=== PATIENT | male | born 2005 | race Caucasian/White ===

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

== ENCOUNTER 2023-08-30 17:33 | Emergency (ER) | payer SELFPAY ==
--- OUTSIDE RECORDS SUMMARY | 2023-08-30 17:36 | XMS REPORT | Continuity of Care Document ---
Author Name Unknown Address [address] [facility] [address] th[address] Address [address] [facility] [address] [place] [address] Care Team Providers Care Robotype Operator Name Role Phone Erich Rockwell Attending Clinician Unavailable Payers Payer Name Policy Type Policy Number Effective Date Expirati on Date Source [facility] P [id number] Encounters Start Date/Time End Date/Time Encounter Type Admission Type Attending Clinicians Care Facility Care Department Encounter ID Source 2021-10-21 16:23:08 Outpatient [facility] [id number] [facility] 2020-12-19 19:19:47 Outpatient [facility] [id number] [facility] 2020-12-19 18:15:06 Outpatient [facility] [id number] [facility] 2020-12-19 17:49:34 Outpatient [facility] [id number] [facility] 2019-11-01 00:00:00 2019-11-01 00:00:00 Office Visit Erich Rockwell [facility] Encounter/ [id number] [facility]
[2023-08-30 18:49] LABS: Specific Gravity > 1.030 (1.005-1.030); Sqamous Epithelial <5 /HPF (None Seen); Urine Bacteria None Seen /HPF (<20); Urine Bilirubin NEGATIVE (Negative); Urine Blood Negative (Negative); Urine Clarity Clear (Clear); Urine Color Yellow (Yellow); Urine Culture Reflex Order NOT NEEDED; Urine Glucose NEGATIVE (Negative); Urine Ketones NEGATIVE (Negative); Urine Micro Reflex YN NO BILL MICROSCOPIC; Urine Mucus 1+ /HPF (None Seen); Urine Nitrite NEGATIVE (Negative); Urine Protein 1+ (Negative); Urine RBC <5 /HPF (None Seen); Urine Urobilinogen Normal (Normal); Urine Yeast (Budding) Trace /HPF (None Seen)
[2023-08-30] MEDS ORDERED: CEFTRIAXONE 250 MG/VIAL ONE (20:00)
[2023-08-30] MEDS ORDERED: LIDOCAINE 1% MPF 5 ML VIAL ONE (20:00)
[2023-08-30] MEDS ORDERED: AZITHROMYCIN 250 MG TAB ONE (20:00)
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
--- NOTE | 2023-08-30 20:38 | ER ---
Nurse's Notes [facility] Name: Dhruv Andino Age: 18 yrs Sex: Male : 2005 Arrival Date: 08/30/2023 Time: 17:33 Bed 20 Private MD: Diagnosis: Encounter for screening for infections with a predominantly sexual mode of transmission Presentation: 08/29 18:20 Chief complaint: Patient states: Burning w/ urination and lower abdominal pain x 1 week ph after having unprotected sex. Coronavirus screen: Vaccine status: Patient reports being unvaccinated. Ebola Screen: No symptoms or risks identified at this time. Initial Sepsis Screen: Does the patient meet any 2 criteria? No. Patient's initial sepsis screen is negative. Does the patient have a suspected source of infection? No. Patient's initial sepsis screen is negative. Risk Assessment: Do you want to hurt yourself or someone else? Patient reports no desire to harm self or others. Onset of symptoms was August 30, 2023. 18:20 Method Of Arrival: Ambulatory ph 18:20 Acuity: TUCKER 4 ph Historical: - Allergies: 18:23 No Known Allergies; ph - Immunization history:: Adult Immunizations unknown. - Infectious Disease History:: Denies. - Social history:: Smoking status: unknown. Screenin:12 [facility] ED Fall Risk Assessment (Adult) History of falling in the last 3 months, me1 including since admission No falls in past 3 months (0 pts) Confusion or Disorientation No (0 pts) Intoxicated or Sedated No (0 pts) Impaired Gait No (0 pts) Mobility Assist Device Used No (0 pt) Altered Elimination No (0 pt) Score/Fall Risk Level 0 - 2 = Low Risk. Abuse screen: Denies threats or abuse. Nutritional screening: No deficits noted. Tuberculosis screening: No symptoms or risk factors identified. Assessment: 20:12 General: Appears comfortable, well groomed, well developed, well nourished, Behavior is me1 calm, cooperative, appropriate for age, Reports Burning w/ urination and lower abdominal pain x 1 week after having unprotected sex. Pain: Complains of pain in suprapubic area Pain does not radiate. Pain currently is 3 out of 10 on a pain scale. Quality of pain is described as tender, Pain began gradually, 1 day ago. Is continuous. Neuro: Level of Consciousness is awake, alert, obeys commands, Oriented to person, place, time, situation, Appropriate for age. Cardiovascular: Capillary refill < 3 seconds Patient's skin is warm and dry. Respiratory: Airway is patent Trachea midline Respiratory effort is even, unlabored, Respiratory pattern is regular, symmetrical. GI: No signs and/or symptoms were reported involving the gastrointestinal system. : Reports burning with urination, since yesterday. EENT: No signs and/or symptoms were reported regarding the EENT system. Derm: Skin is intact, is healthy with good turgor, Skin is pink, warm \T\ dry. Musculoskeletal: No signs and/or symptoms reported regarding the musculoskeletal system. Vital Signs: 18:20 BP 140 / 63; Pulse 75; Resp 18; Temp 98; Pulse Ox 99% on R/A; ph 20:35 BP 136 / 57; Pulse 72; Resp 17; Pulse Ox 99% on R/A; me1 ED Course: 17:35 Patient arrived in ED. mr 17:40 Jonas Urbina PA is PHCP. cp 17:40 Sebastian Jovel MD is Attending Physician. cp 18:23 Triage completed. ph 18:23 Arm band placed on Patient placed in waiting room, Patient notified of wait time. ph 19:57 Ibis Do, THUY is Primary Nurse. me1 20:12 Patient has correct armband on for positive identification. Bed in low position. Call me1 light in reach. Provided Education on: POC. Verbalized understanding. . Client placed on continuous cardiac and pulse oximetry monitoring. NIBP monitoring applied. Pulse ox on. NIBP on. 20:12 No provider procedures requiring assistance completed. Patient did not have IV access me1 during this emergency room visit. Administered Medications: 20:11 Drug: AZITHromycin PO 1 grams PO once Route: PO; me1 20:29 Follow up: Response: No adverse reaction me1 20:12 Drug: Rocephin (cefTRIAXone) IM 250 mg IM once Route: IM; Site: left gluteus; me1 20:29 Follow up: Response: No adverse reaction me1 Medication: 20:12 VIS not applicable for this client. me1 Outcome: 20:38 Discharge ordered by . cp 20:49 Discharged to home ambulatory, me1 20:49 Condition: stable 20:49 Discharge instructions given to patient, Instructed on discharge instructions, follow up and referral plans. Demonstrated understanding of instructions, follow-up care, 20:49 Patient left the ED. me1 Signatures: Eloina Juarez Reg Reg mr Vernell Dodson RN RN ph Jonas Urbina PA PA Ibis Sanchez, RN RN me1 Corrections: (The following items were deleted from the chart) 18:23 18:23 Allergies: Aspirin; ph ph 20:12 18:20 Chief complaint: Patient states: Burning w/ urination and lower abdominal pain x me1 1 week after having unprotected sex ph
[2023-08-31 03:19] VITALS: BP 136/57; TEMP 98; O2SAT 99
== END 2023-08-30 20:49 | disposition home or self-care (01) ==
LOC: ER 17:33
DX: Z11.3 Encounter for screening for infections with a predominantly sexual mode of transmission (principal)
CPT/HCPCS: 81001; 87490; 87590; 96372; 99284; J0696; J2001

== ENCOUNTER 2024-05-30 04:13 | Emergency (ER) | payer SELFPAY ==
--- OUTSIDE RECORDS SUMMARY | 2024-05-30 04:16 | XMS REPORT | Continuity of Care Document ---
Author Name Unknown Address [address] [place] [address] [facility] [address] [place] [address] Care Team Providers Care Private Client Advisor Name Role Phone Erich Rockwell Attending Clinician Unavailable Payers Payer Name Policy Type Policy Number Effective Date Expirati on Date Source [facility] P [id number] Encounters Start Date/Time End Date/Time Encounter Type Admission Type Attending Clinicians [facility] Care Department Encounter ID Source 2021-10-21 16:23:08 Outpatient [facility] [id number] [facility] 2020-12-19 19:19:47 Outpatient [facility] [id number] [facility] 2020-12-19 18:15:06 Outpatient [facility] [id number] [facility]who [facility] 2020-12-19 17:49:34 Outpatient [facility] [id number] [facility] 2019-11-01 00:00:00 2019-11-01 00:00:00 Office Visit Erich Rockwell [facility] Encounter/ [id number] [facility]
--- NOTE | 2024-05-30 05:52 | EDPHYS ---
Physician Documentation [facility] Name: Dhruv Andino Age: 19 yrs Sex: Male : 2005 Arrival Date: 05/30/2024 Time: 04:13 Bed 3 Private MD: ED Physician Matt Calix HPI: 05/30 04:33 This 19 yrs old Male presents to ER via Unassigned with complaints of sp4 Anxiety, Depression, confusion,. 05:54 19-year-old male presents to the emergency room for evaluation.. Patient reports he sp4 needs help with medications. Additionally patient reported some problem with sleep. Patient has refused to answer any other questions. Appears intoxicated on presentation. History of cannabis use based on prior record.. 10/06/2023 patient tested positive for cannabis. Today patient appears moderately intoxicated and is refusing to answer questions. . Historical: - Allergies: 04:37 No Known Allergies; br2 - PMHx: 04:37 Bipolar disorder; Major Depressive Disorder; br2 - Immunization history:: Adult Immunizations unknown. - Infectious Disease History:: Denies. - Social history:: Smoking status: Reported history of juuling and/or vaping. Patient uses alcohol, occasionally. street drugs, marijuana. - Family history:: not pertinent. ROS: 05:54 Constitutional: Negative for fever, chills, and weight loss, positive for complaint sp4 of anxiety and insomnia 05:54 All other systems are negative, Exam: 05:54 Constitutional: This is a well developed, well nourished patient who is awake, alert, sp4 and in no acute distress. Noticed to be ambulatory without problem, appears intoxicated on arrival and is refusing to answer questions Head/Face: Normocephalic, atraumatic. Eyes: Pupils equal round and reactive to light, extra-ocular motions intact. Lids and lashes normal. Conjunctiva and sclera are not injected. Cornea within normal limits. Periorbital areas with no swelling, redness, or edema. ENT: Nares patent. No nasal discharge, no septal abnormalities noted. Tympanic membranes are normal and external auditory canals are clear. Oropharynx with no redness, swelling, or masses, exudates, or evidence of obstruction, uvula midline. Mucous membranes moist. Neck: Trachea midline, no thyromegaly or masses palpated, and no cervical lymphadenopathy. Supple, full range of motion without nuchal rigidity, or vertebral point tenderness. Chest/axilla: Normal chest wall appearance and motion. Nontender with no deformity. No lesions are appreciated. Cardiovascular: Regular rate and rhythm with a normal S1 and S2. No gallops, murmurs, or rubs. Normal PMI, no JVD. No pulse deficits. Respiratory: Lungs have equal breath sounds bilaterally, clear to auscultation and percussion. No rales, rhonchi or wheezes noted. No increased work of breathing, no retractions or nasal flaring. Abdomen/GI: Soft, with normal bowel sounds. No distension or tympany. No guarding or rebound. No evidence of tenderness throughout. Back: No spinal tenderness. No costovertebral tenderness. Skin: Warm, dry with normal turgor. Normal color with no rashes, no lesions, and no evidence of cellulitis. MS/ Extremity: Pulses equal, no cyanosis. Neurovascular intact. Full, normal range of motion. Neuro: Awake and alert, grossly no lateralizing deficits, patient is not cooperative with exam. Noted to ambulate without a problem Psych: Awake, alert, exam is limited secondary to intoxication . Patient is refusing to answer questions. Appears to be oriented to self and others. Ambulates to the bathroom without difficulty. Playing music on the [employer] device without difficulty. Vital Signs: 04:33 BP 143 / 91; Pulse 87; Resp 18; Temp 97.1; Pulse Ox 99% ; Weight 86.18 kg; Height 5 ft. br2 11 in. ; Pain 0/10; 05:27 BP 154 / 86; Pulse 87; Resp 16; Pulse Ox 99% on R/A; dd2 04:33 Body Mass Index 26.50 (86.18 kg, 180.34 cm) br2 04:33 Pain Scale: Adult br2 Sathish Coma Score: 05:54 Eye Response: spontaneous(4). Motor Response: obeys commands(6). Verbal Response: sp4 oriented(5). Total: 15. MDM: 04:46 Medical Screening Exam initiated sp4 05:54 Differential diagnosis: drug withdrawal. acute psychotic break, depression, psychosis sp4 secondary to non-compliance. Data reviewed: vital signs, nurses notes, old medical records. ED course: On initial evaluation patient refused to answer most of the questions. Reported some problem with sleep. On second assessment patient refused to speak at all. Patient played music on his cellular phone without answering any questions. Patient was informed that we do not see signs of acute medical emergency. Patient at this time deemed stable for discharge from the emergency department. Patient is ambulatory without difficulty.. 06:01 ED course: We suspect cannabis intoxication. . sp4 Administered Medications: No medications were administered Disposition Summary: 05/30/24 05:51 Discharge Ordered Notes: Location: Home sp4 Problem: new sp4 Symptoms: have improved sp4 Condition: Stable sp4 Diagnosis - Insomnia not otherwise specified , initial encounter sp4 Followup: sp4 - With: Private Physician - When: As needed - Reason: Recheck today's complaints Discharge Instructions: - Discharge Summary Sheet sp4 - Medical Screening Exam sp4 Forms: - Patient Portal Instructions sp4 Signatures: Matt Calix MD MD sp4 Kristina Joseph RN RN br2
--- NOTE | 2024-05-30 05:52 | ER ---
Nurse's Notes [facility] Name: Dhruv Andino Age: 19 yrs Sex: Male : 2005 Arrival Date: 05/30/2024 Time: 04:13 Bed 3 Private MD: Diagnosis: Insomnia not otherwise specified , initial encounter Presentation: 05/30 04:33 Chief complaint: Patient states: PT CHECKED IN FOR ANXIETY/DEPRESSION BUT WILL NOT TELL br2 US WHY HE IS HERE. PT HAS A CAP AND MASK ON AND JUST LOOKS DOWN. PT REMOVED MASK FOR A MOMENT AND JUST SMILES WITH MINIMAL SPEAKING. Coronavirus screen: Client denies travel out of the [place] in the last 14 days. Ebola Screen: Patient denies exposure to infectious person. Initial Sepsis Screen: Does the patient meet any 2 criteria? No. Patient's initial sepsis screen is negative. Does the patient have a suspected source of infection? No. Patient's initial sepsis screen is negative. Risk Assessment: Do you want to hurt yourself or someone else? Patient reports no desire to harm self or others. Onset of symptoms is unknown. 04:33 Method Of Arrival: Ambulatory br2 04:33 Acuity: TUCKER 3 br2 Triage Assessment: 04:37 General: Appears in no apparent distress. Behavior is flat, uncooperative. Pain: Denies br2 pain. EENT: No signs and/or symptoms were reported regarding the EENT system. Neuro: Level of Consciousness is awake, alert, obeys commands, Oriented to person, place, time. Historical: - Allergies: 04:37 No Known Allergies; br2 - PMHx: 04:37 Bipolar disorder; Major Depressive Disorder; br2 - Immunization history:: Adult Immunizations unknown. - Infectious Disease History:: Denies. - Social history:: Smoking status: Reported history of juuling and/or vaping. Patient uses alcohol, occasionally. street drugs, marijuana. - Family history:: not pertinent. Screenin:45 Abuse screen: PT REFUSING TO ANSWER ASSESSMENT AND HX QUESTIONS. CONTINUES TO SIT AND dd2 SMILE BUT NOT COOPERATING. Nutritional screening: No deficits noted. Tuberculosis screening: No symptoms or risk factors identified. 06:05 [facility] ED Fall Risk Assessment (Adult). dd2 Assessment: 04:45 Reassessment: PT SITTING IN BED, SMILING, REFUSING TO ANSWER QUESTIONS OR ALLOW dd2 ASSESSMENT. RESPIRATIONS EVEN AND UNLABORED, MOVES ALL EXTREMITIES. VSS. General: Appears in no apparent distress. Behavior is flat, uncooperative. Neuro: No deficits noted. Cardiovascular: No deficits noted. Respiratory: No deficits noted. GI: No deficits noted. PT REFUSES TO ANSWER QUESTIONS. : No deficits noted. EENT: No deficits noted. Derm: No deficits noted. Musculoskeletal: No deficits noted. Circulation, motion, and sensation intact. Range of motion: intact in all extremities, PT AMBULATED WITH A STEADY GAIT. Psych: 06:02 [place] Suicide Severity Screening: In the past month, have you wished you were dd2 or wished you could go to sleep and not wake up? pt refuses to answer assessment and Hx questions. "In the past month, have you actually had any thoughts of killing yourself?" refusing to answer questions "In your lifetime, have you ever done anything, started to do anything, or prepared to do anything to end your life?" refusing to answer questions. Subjective: Patient's mood is flat. Objective: Patient is uncooperative. Interventions: Pt not presenting with HI/SI. Safety Checks: Door is open. Patient uses marijuana. Vital Signs: 04:33 BP 143 / 91; Pulse 87; Resp 18; Temp 97.1; Pulse Ox 99% ; Weight 86.18 kg; Height 5 ft. br2 11 in. ; Pain 0/10; 05:27 BP 154 / 86; Pulse 87; Resp 16; Pulse Ox 99% on R/A; dd2 04:33 Body Mass Index 26.50 (86.18 kg, 180.34 cm) br2 04:33 Pain Scale: Adult br2 Sathish Coma Score: 05:54 Eye Response: spontaneous(4). Motor Response: obeys commands(6). Verbal Response: sp4 oriented(5). Total: 15. ED Course: 04:17 Patient arrived in ED. gm2 04:33 Matt Calix MD is Attending Physician. sp4 04:37 Triage completed. br2 04:37 Arm band placed on right wrist. br2 04:45 Bed in low position. Call light in reach. Side rails up X2. Client placed on continuous dd2 cardiac and pulse oximetry monitoring. NIBP monitoring applied. Door closed. Noise minimized. Pillow given. Verbal reassurance given. 04:45 No provider procedures requiring assistance completed. Patient did not have IV access dd2 during this emergency room visit. Patient maintains SpO2 saturation greater than 95% on room air. 06:00 HELEN GONZALES, RN is Primary Nurse. dd2 06:01 Provided Education on: d/c education. dd2 Administered Medications: No medications were administered Medication: 04:45 VIS not applicable for this client. dd2 Outcome: 05:51 Discharge ordered by . merlyn 06:01 Discharged to home ambulatory, dd2 06:01 Condition: stable 06:01 Discharge instructions given to patient, Instructed on discharge instructions, follow up and referral plans. Demonstrated understanding of instructions, follow-up care, 06:05 Patient left the ED. dd2 Signatures: Matt Calix MD MD sp4 Alee Espinoza gm2 Kristina Joseph RN RN br2 HELEN GONZALES, RN RN dd2
[2024-05-30 06:22] VITALS: TEMP 97.1; O2SAT 99
[2024-05-30 06:23] VITALS: BP 154/86
== END 2024-05-30 06:05 | disposition home or self-care (01) ==
LOC: ER 04:13
DX: G47.00 Insomnia, unspecified (principal)
CPT/HCPCS: 99283

== ENCOUNTER 2024-05-30 20:43 | Emergency (ER) | payer SELFPAY ==
--- OUTSIDE RECORDS SUMMARY | 2024-05-30 20:45 | XMS REPORT | Continuity of Care Document ---
Author Name Unknown Address [address] [place] [address] [facility] Address [address] [place] [address] Care Team Providers Care Sign Maintenance Name Role Phone Erich Rockwell Attending Clinician Unavailable Payers Payer Name Policy Type Policy Number Effective Date Expirati on Date Source [facility] P [id number] Encounters Start Date/Time End Date/Time Encounter Type Admission Type Attending Clinicians [facility] Facility Care Department Encounter ID Source 2021-10-21 16:23:08 Outpatient [facility] [id number] [facility] 2020-12-19 19:19:47 Outpatient [facility] [id number] [facility] 2020-12-19 18:15:06 Outpatient [facility] [id number] [facility] 2020-12-19 17:49:34 Outpatient [facility] [id number] [facility] 2019-11-01 00:00:00 2019-11-01 00:00:00 Office Visit Erich Rockwell [facility] Encounter/ [id number] [facility]
[2024-05-30] MEDS ORDERED: LORAZEPAM 1 MG TABLET ONE (22:59)
[2024-05-30] MEDS ORDERED: DIPHENHYDRAMINE 25 MG TAB/CAP ONE (22:59)
[2024-05-30 23:47] LABS: Specific Gravity 1.011 (1.005-1.030); Urine Bilirubin NEGATIVE (Negative); Urine Blood Negative (Negative); Urine Clarity Clear (Clear); Urine Color Light-Yellow (Yellow); Urine Glucose NEGATIVE (Negative); Urine Ketones 2+ (Negative); Urine Microscopic Reflex YN NO UMIC; Urine Nitrite NEGATIVE (Negative); Urine Protein NEGATIVE (Negative); Urine Urobilinogen Normal (Normal)
[2024-05-30 23:50] LABS: Absolute Basophils 0.1 K/uL (0-0.5); Absolute Monocytes 1.4 K/uL (0.1-1.3); Absolute Neutrophil 8.7 K/uL (1.8-8.0); Basophils % 0.7 % (0-1.3); Eosinophils % 0.3 % (0-4.4); Hematocrit 48.7 % (39.6-49.0); Hemoglobin 16.7 g/dL (13.6-17.9); MCH 28.6 pg (27.0-35.0); MCHC 34.2 g/dL (32.0-36.0); MCV 83.6 fL (80-100); Monocytes % 10.4 % (3.3-12.3); Neutrophils % 65.6 % (41.7-73.7); Nucleated Red Blood Cells % 0.1 % (0-0); Platelets 280 thou/uL (152-406); RBC Red Blood Cell Count 5.83 M/uL (4.33-5.43); Red Cell Distribution Width 14.7 % (12.1-15.2)
[2024-05-30 23:58] LABS: PT Prothrombin Time 14.5 SECONDS (10-13.0); PTT, Activated Partial Thromb 27.4 SECONDS (27.2-37.4); Protime INR 1.29
[2024-05-31 00:05] LABS: Barbiturates NEGATIVE (NEGATIVE); Benzodiazepines NEGATIVE (NEGATIVE); Cocaine NEGATIVE (NEGATIVE); METHAMPHETAM NEGATIVE (NEGATIVE); Methadone NEGATIVE (NEGATIVE); Opiates NEGATIVE (NEGATIVE); Phencyclidine NEGATIVE (NEGATIVE); THC Cannibis POSITIVE (NEGATIVE)
[2024-05-31 00:17] LABS: ALT/SGPT 27 U/L (16-61); AST/SGOT 38 U/L (15-37); Albumin 4.4 g/dL (3.4-5.0); Alkaline Phosphatase 82 U/L (45-117); Anion Gap 11.1 mEq/L (5.0-15.0); BUN Blood Urea Nitrogen 10 mg/dL (7-18); Bicarbonate 29 mEq/L (21-32); Bilirubin Direct 0.4 mg/dL (0-0.2); Bilirubin Indirect, Calculated 0.7 mg/dL (0.2-0.8); Bilirubin Total 1.1 mg/dL (0.2-1.0); Globulin 4.2 g/dL (2.3-3.5); Glomerular Filtration Rate 86 ml/min (=/>90); Glucose Level 106 mg/dL (74-106); Potassium 3.1 mEq/L (3.5-5.1); Protein, Total 8.6 g/dL (6.4-8.2); Sodium Level 135 mEq/L (136-145)
--- NOTE | 2024-05-31 11:46 | ER ---
Nurse's Notes [facility] Name: Dhruv Andino Age: 19 yrs Sex: Male : 2005 Arrival Date: 05/30/2024 Time: 20:43 Bed 18 Private MD: Diagnosis: Bipolar disorder, current episode depressed, moderate;Suicidal ideations-RESOLVED Presentation: 05/30 21:43 Chief complaint: Patient states: "i was here this morning and they told me that I was cm10 okay, but i told them that i was going to crash the fuck out." Pt states that he hasn't slept in days and is having thoughts of wanting to hurt others. No SI. Coronavirus screen: Client denies travel out of the [place] in the last 14 days. Ebola Screen: Patient denies travel to an Ebola-affected area in the 21 days before illness onset. Initial Sepsis Screen: Does the patient meet any 2 criteria? No. Patient's initial sepsis screen is negative. Does the patient have a suspected source of infection? No. Patient's initial sepsis screen is negative. Risk Assessment: Do you want to hurt yourself or someone else? Patient reports desire/thoughts of hurting themselves or someone else. Provider notified. Onset of symptoms was May 30, 2024. 21:43 Method Of Arrival: Ambulatory cm10 21:43 Acuity: TUCKER 2 cm10 Triage Assessment: 21:46 General: Appears comfortable, Behavior is cooperative, flat. Neuro: No deficits noted. cm10 Level of Consciousness is awake, alert, obeys commands, Oriented to person, place, time, situation, Appropriate for age. Respiratory: Airway is patent Respiratory effort is even, unlabored, Respiratory pattern is regular, symmetrical. Historical: - Allergies: 21:45 No Known Allergies; cm10 - PMHx: 21:45 Bipolar disorder; Major Depressive Disorder; cm10 - Immunization history:: Adult Immunizations up to date. - Infectious Disease History:: Denies. - Social history:: Smoking status: unknown Patient uses street drugs, marijuana. - Family history:: not pertinent. Screenin/26 02:25 [facility] ED Fall Risk Assessment (Adult) History of falling in the last 3 months, aa10 including since admission No falls in past 3 months (0 pts) Confusion or Disorientation No (0 pts) Intoxicated or Sedated No (0 pts) Impaired Gait No (0 pts) Mobility Assist Device Used No (0 pt) Altered Elimination No (0 pt) Score/Fall Risk Level 0 - 2 = Low Risk Oriented to surroundings, Maintained a safe environment, Educated pt \\T\\ family on fall prevention, incl call for assistance when getting out of bed, Assessed \\T\\ reinforced patient's understanding of fall precautions, Provided non-skid footwear. Abuse screen: Denies threats or abuse. Denies injuries from another. Nutritional screening: No deficits noted. Tuberculosis screening: No symptoms or risk factors identified. Assessment: 02:24 General: Appears in no apparent distress. comfortable, well groomed, well developed, aa10 Behavior is. Pain: Denies pain. Neuro: No deficits noted. Level of Consciousness is awake, alert, obeys commands, Oriented to person, place, time, situation, Appropriate for age Surface Grinder Tender are equal bilaterally Moves all extremities. Gait is steady, Speech is normal, Facial symmetry appears normal, Pupils are PERRLA, Intact. Cardiovascular: No deficits noted. Capillary refill < 3 seconds. Respiratory: No deficits noted. Airway is patent. GI: No deficits noted. Abdomen is non-distended. : No deficits noted. 02:27 Reassessment: Patient appears in no apparent distress at this time. No changes from aa10 previously documented assessment. Patient and/or family updated on plan of care and expected duration. Pain level reassessed. Patient is alert, oriented x 3, equal unlabored respirations, skin warm/dry/pink. Patient denies pain at this time. Patient states feeling better. Patient states symptoms have improved. 06:58 Reassessment: MD AT bedside to reassess patient, patient verbalis SI without a plan, aa10 suicidal precaution commenced at this time, sitter at bedside for continuous one on one continuous observation. 07:00 Reassessment: Received patient from THUY Chapin. Pt room safe with belongings with 1 security. Pt sleeping on mattress placed on ground for safety. Sitter at bedside. Q shift paperwork completed. Cell phone from room sent to security at this time. 07:31 Reassessment: [facility] at bedside - denies acceptance at this time. ld1 Vital Signs: 05/30 21:43 BP 127 / 85; Pulse 59; Resp 15; Temp 98.3; Pulse Ox 100% on R/A; cm10 Justice Coma Score: 05/31 05:38 Eye Response: spontaneous(4). Motor Response: obeys commands(6). Verbal Response: sp4 oriented(5). Total: 15. ED Course: 05/30 20:44 Patient arrived in ED. im 20:53 Matt Calix MD is Attending Physician. sp4 21:45 Triage completed. cm10 21:45 Arm band placed on left wrist. Patient placed in an exam room, on a stretcher. cm10 23:15 Inserted saline lock: 20 gauge in left antecubital area, using aseptic technique. Blood rg5 collected. Flushed with 10 mL NS. 23:34 Acetaminophen Sent. aa10 23:34 Basic Metabolic Panel Sent. aa10 23:34 CBC with Diff Sent. aa10 23:34 ETOH Level Sent. aa10 23:34 Hepatic Function Sent. aa10 23:34 PT-INR Sent. aa10 23:34 Ptt, Activated Sent. aa10 23:34 Salicylate Sent. aa10 23:34 Urinalysis w/ reflexes Sent. aa10 23:34 Urine Drug Screen Sent. aa10 05/31 02:26 Patient has correct armband on for positive identification. Allergy band placed. Fall aa10 risk band placed. Placed in gown. Bed in low position. Call light in reach. Side rails up X2. Provided Education on: about plan of care. 02:26 No provider procedures requiring assistance completed. aa10 05:46 contacted [facility] for screening. [facility] 06:13 Rupesh with [facility] eta 45 min to 1 hour eta. kmf 06:48 Safety checks: Items removed: Door open/sign placed on door: Sitter present:. Door rv1 closed. Noise minimized. Visitors limited. Lights dimmed. Sitter at bedside. 07:22 Report received from THUY Chapin. ld1 07:57 Attending Physician role handed off by Matt Calix MD cha 07:57 Jonas Herrera MD is Attending Physician. rose 12:01 [facility] bd 12:49 patient requesting to leave... informed patient of safety decisions, patient pulled IV. bc6 and was given belongings from security . patient not on PENELOPE. 13:14 patient walked out of ED. bc6 13:15 Abhay Mitchell MD is Referral Physician. rose Administered Medications: 05/30 23:14 Drug: LORazepam PO 2 mg PO once Route: PO; rg5 23:14 Drug: diphenhydrAMINE PO 50 mg PO once Route: PO; rg5 Medication: 05/31 02:26 VIS not applicable for this client. aa10 Outcome: 11:46 ER care complete, transfer ordered by . [facility] 13:18 Discharge ordered by . rose 13:22 Patient left the ED. ll1 Addendum: 13:15 Addendum: Other Pt refused VS and refused safety plan at discharge. k b3 Signatures: Mago Renee Corey, MD MD cha Lewis, Lynsay RN RN ll1 Cecelia Saunders RN RN ld1 Mony Grullon, RN RN kb3 Glenys Zepeda rv1 Terrie Spencer 6 Matt Calix MD MD sp4 Emily Lopes Clarissa RN RN cm10 Trixie Farooq [facility] Joel Gregg RN RN rg5 Izzy Escobedo RN RN aa10 Corrections: (The following items were deleted from the chart) 05/30 21:46 21:46 Respiratory: Airway is patent Respiratory effort is even, unlabored, shallow, cm10 Respiratory pattern is regular, symmetrical, cm10
--- NOTE | 2024-05-31 11:47 | EDPHYS ---
Physician Documentation [facility] Name: Dhruv Andino Age: 19 yrs Sex: Male : 2005 Arrival Date: 05/30/2024 Time: 20:43 Bed 18 Private MD: ED Physician Jonas Herrera HPI: 05/30 20:53 This 19 yrs old Male presents to ER via Unassigned with complaints of Mental sp4 health. 05/31 05:38 19-year-old male presents to the emergency room stating he needs help. Patient sp4 initially misbehaved in the waiting room by taken off his T-shirt and throwing a shoe with another patient. Police was called to the waiting area and after evaluating patient police left. Patient checked in in his own words to get help. Patient poorly cooperative with questioning. When pressed for answers patient begins to cuss. Patient appears intoxicated on the drug abuse. . Historical: - Allergies: 05/30 21:45 No Known Allergies; cm10 - PMHx: 21:45 Bipolar disorder; Major Depressive Disorder; cm10 - Immunization history:: Adult Immunizations up to date. - Infectious Disease History:: Denies. - Social history:: Smoking status: unknown Patient uses street drugs, marijuana. - Family history:: not pertinent. ROS: 05/31 05:38 Constitutional: Negative for fever, chills, and weight loss, positive for mental sp4 health issues All other systems are negative, Unable to obtain ROS due to patient being uncooperative, Exam: 05:38 Constitutional: This is a well developed, well nourished patient who is awake, alert, sp4 and in no acute distress. Appears intoxicated on drugs Head/Face: Normocephalic, atraumatic. Eyes: Pupils equal round and reactive to light, extra-ocular motions intact. ENT: Nares patent. No nasal discharge, no septal abnormalities noted. Neck: Trachea midline, no thyromegaly or masses Chest/axilla: Normal chest wall appearance and motion. Nontender with no deformity. No lesions are appreciated. Cardiovascular: Regular rate and rhythm with a normal S1 and S2. No gallops, murmurs, or rubs. Respiratory: Lungs have equal breath sounds bilaterally, clear to auscultation and percussion. No rales, rhonchi or wheezes noted. No increased work of breathing, no retractions or nasal flaring. Abdomen/GI: Soft, with normal bowel sounds. No distension or tympany. No guarding or rebound. No evidence of tenderness throughout. Back: No spinal tenderness. No costovertebral tenderness. Skin: Warm, dry with normal turgor. Normal color with no rashes, no lesions, and no evidence of cellulitis. MS/ Extremity: Pulses equal, no cyanosis. Neurovascular intact. Full, normal range of motion. Neuro: Awake and alert, GCS 15, oriented to person, place, and cooperative with exam but grossly no signs of neurologic deficits Psych: Awake, alert, with orientation to person, place and cooperative patient, becomes angry with questioning Vital Signs: 05/30 21:43 BP 127 / 85; Pulse 59; Resp 15; Temp 98.3; Pulse Ox 100% on R/A; cm10 Sathish Coma Score: 05/31 05:38 Eye Response: spontaneous(4). Motor Response: obeys commands(6). Verbal Response: sp4 oriented(5). Total: 15. MDM: 05/30 22:26 Medical Screening Exam initiated sp4 05/31 05:42 Differential diagnosis: drug withdrawal. acute psychotic break, depression, psychosis sp4 secondary to non-compliance. Data reviewed: vital signs, nurses notes, old medical records, lab test result(s), CBC, drug level(s), electrolytes. Consideration of Admission/Observation Escalation of care including admission/observation considered. ED course: Patient was given Ativan p.o. in an attempt to get him to sleep all of his drugs, on repeat evaluation at 5:40 patient remains uncooperative with questioning. On further questioning patient reported that he is danger to himself and he has plans to harm himself. He also wants help with his medications. Patient reports no homicidal ideation. Based on prior record on 10/07/2023 patient created significant disturbance in the emergency department and had to be taken away in handcuffs. Will proceed with [facility] evaluation for suicidal ideation associated with suicide plan. . 06:57 Transition of care: After a detail discussion of the patient's case, care is sp4 transferred to Jonas Herrera MD. 05/30 22:02 Order name: Acetaminophen; Complete Time: 01:50 sp4 05/30 22:02 Order name: Basic Metabolic Panel; Complete Time: 01:50 sp4 05/30 22:02 Order name: CBC with Diff; Complete Time: :50 sp4 05/30 22:02 Order name: ETOH Level; Complete Time: :50 sp4 05/30 22:02 Order name: Hepatic Function; Complete Time: 01:50 sp4 05/30 22:02 Order name: PT-INR; Complete Time: :50 4 05/30 22:02 Order name: Ptt, Activated; Complete Time: 01:50 sp4 05/30 22:02 Order name: Salicylate; Complete Time: :50 sp4 05/30 22:02 Order name: Urinalysis w/ reflexes; Complete Time: :50 05/30 22:02 Order name: Urine Drug Screen; Complete Time: :50 sp05/30 22:02 Order name: IV Saline Lock; Complete Time: 23:14 sp4 05/30 22:02 Order name: Labs collected and sent; Complete Time: 23:14 [facility] 05/31 05:46 Order name: Suicide Precautions; Complete Time: 05:57 sp4 Administered Medications: 05/30 23:14 Drug: LORazepam PO 2 mg PO once Route: PO; rg5 23:14 Drug: diphenhydrAMINE PO 50 mg PO once Route: PO; rg5 Disposition Summary: 05/31/24 13:18 Discharge Ordered Notes: Location: Home rose Problem: new(05/31/24 13:18) rose Symptoms: have improved(05/31/24 13:18) rose Condition: Stable(05/31/24 13:18) rose Diagnosis - Bipolar disorder, current episode depressed, moderate(05/31/24 13:18) rose - Suicidal ideations - RESOLVED(05/31/24 13:18) rose Followup: rose - With: Private Physician - When: 2 - 3 days - Reason: Recheck today's complaints, Continuance of care, Re-evaluation by your physician Followup: rose - With: Abhay Mitchell MD - When: 2 - 3 days - Reason: Recheck today's complaints, Re-evaluation by your physician Discharge Instructions: - Discharge Summary Sheet rose - Suicidal Feelings: How to Help Yourself rose - Helping Someone Who is Suicidal rose - Stress, Adult rose - Managing Bipolar Disorder rose - Supporting Someone With Bipolar Disorder rose Forms: - Medication Reconciliation Form rose - Antibiotic Education rose - Prescription Opioid Use rose - Patient Portal Instructions rose - Leadership Thank You Letter rose Signatures: Dispatcher [employer] EDJonas Lynn MD MD cha Potepalov, Sergey, MD MD sp4 Yareli De La Torre RN RN cm10 Joel Gregg RN RN rg5 Corrections: (The following items were deleted from the chart) 22:03 22:03 ACETAMINOPHEN+C.LAB.BRZ ordered. EDMS EDMS 22:03 22:03 BASIC METABOLIC PANEL+C.LAB.BRZ ordered. EDMS EDMS 22:03 22:03 CBC+H.LAB.BRZ ordered. EDMS EDMS 22:03 22:03 ETHANOL+C.LAB.BRZ ordered. EDMS EDMS 22:03 22:03 HEPATIC FUNCTION+C.LAB.BRZ ordered. EDMS EDMS 22:03 22:03 PROTIME (+INR)+COAG.LAB.BRZ ordered. EDMS EDMS 22:03 22:03 PTT, ACTIVATED+COAG.LAB.BRZ ordered. EDMS EDMS 22:03 22:03 SALICYLATE+C.LAB.BRZ ordered. EDMS EDMS 22:03 22:03 Urinalysis+U.LAB.BRZ ordered. EDMS EDMS 22:03 22:03 URINE DRUG SCREEN+UC.LAB.BRZ ordered. EDMS EDMS 05/31 13:14 11:46 TO PSYCH rose rose 13:14 11:46 Psych Facility rose rose 13:14 11:46 Higher level of care rose rose 13:14 11:46 Stable rose rose 13:14 11:46 new rose rose 13:14 11:46 have improved rose rose 13:14 11:46 Bipolar disorder, current episode depressed, moderate rose rose 13:14 11:46 Suicidal ideations rose rose
[2024-05-31 13:38] VITALS: BP 127/85; TEMP 98.3; O2SAT 100
== END 2024-05-31 13:22 | disposition home or self-care (01) ==
LOC: ER 20:43
DX: F31.32 Bipolar disorder, current episode depressed, moderate (principal)
CPT/HCPCS: 36415; 80048; 80076; 80143; 80179; 80307; 81003; 82077; 85025; 85610; 85730

== ENCOUNTER 2024-06-13 13:25 | Emergency (ER) | payer SELFPAY ==
--- OUTSIDE RECORDS SUMMARY | 2024-06-13 13:29 | XMS REPORT | Continuity of Care Document ---
Author Name Unknown Address [address] [place] [address] [facility] [address] [place] [address] Care Team Providers Care Due Diligence Coordinator Name Role Phone Erich Rockwell Attending Clinician Unavailable Payers Payer Name Policy Type Policy Number Effective Date Expirati on Date Source [facility] P [id number] Encounters Start Date/Time End Date/Time Encounter Type Admission Type Attending Clinicians [facility] Facility Care Department Encounter ID Source 2021-10-21 16:23:08 Outpatient [facility] [id number] [facility] 2020-12-19 19:19:47 Outpatient [facility] [id number] [facility] 2020-12-19 18:15:06 Outpatient [facility] [id number] [facility] 2020-12-19 17:49:34 Outpatient [facility] [id number] [facility] 2019-11-01 00:00:00 2019-11-01 00:00:00 Office Visit Erich Rockwell [facility] Encounter/ [id number] [facility]
--- NOTE | 2024-06-13 14:28 | RAD REPORT ---
EXAM: CT brain without contrast HISTORY: Blurred vision COMPARISON: 2021 TECHNIQUE: Multiple contiguous axial images were obtained and a CT of the brain without contrast.. Sagittal and coronal reconstruction performed. Automated exposure control, adjustment of the mA and/or kV according to patient size, and/or iterative reconstruction. Unless otherwise specified, incidental f indings do not require dedicated imaging follow-up FINDINGS: An intracranial bleed is not seen Ventricles are normal caliber No extra-axial fluid collection noted No significant hypodensity within the brain No fluid within the visualized sinuses or mastoids noted. IMPRESSION: No acute intracranial abnormality noted. If the patient continues to have symptoms to suggest an acute intracranial abnormality then MRI of th e brain would be recommended.
[2024-06-13 15:06] LABS: Specific Gravity 1.009 (1.005-1.030); Urine Bilirubin NEGATIVE (Negative); Urine Blood Negative (Negative); Urine Clarity Clear (Clear); Urine Color Colorless (Yellow); Urine Glucose NEGATIVE (Negative); Urine Ketones NEGATIVE (Negative); Urine Microscopic Reflex YN NO UMIC; Urine Nitrite NEGATIVE (Negative); Urine Protein NEGATIVE (Negative); Urine Urobilinogen Normal (Normal); Urine pH 7.5 (5.0-7.0)
[2024-06-13 15:12] LABS: Absolute Eosinophils 0.1 K/uL (0-0.5); Absolute Lymphocytes (CBC) 1.9 K/uL (0.7-4.9); Absolute Monocytes 0.4 K/uL (0.1-1.3); Absolute Neutrophil 3.5 K/uL (1.8-8.0); Basophils % 0.5 % (0-1.3); Eosinophils % 1.2 % (0-4.4); Hematocrit 46.6 % (39.6-49.0); Hemoglobin 15.8 g/dL (13.6-17.9); MCH 28.8 pg (27.0-35.0); MCHC 33.8 g/dL (32.0-36.0); MCV 85.3 fL (80-100); MPV 7.9 fL (7.6-11.3); Monocytes % 6.2 % (3.3-12.3); Neutrophils % 60.1 % (41.7-73.7); Nucleated Red Blood Cells % 0.1 % (0-0); Platelets 221 thou/uL (152-406); RBC Red Blood Cell Count 5.46 M/uL (4.33-5.43); Red Cell Distribution Width 15.2 % (12.1-15.2)
[2024-06-13 15:20] LABS: Barbiturates NEGATIVE (NEGATIVE); Benzodiazepines NEGATIVE (NEGATIVE); Cocaine NEGATIVE (NEGATIVE); METHAMPHETAM NEGATIVE (NEGATIVE); Methadone NEGATIVE (NEGATIVE); Opiates NEGATIVE (NEGATIVE); Phencyclidine NEGATIVE (NEGATIVE); THC Cannibis POSITIVE (NEGATIVE)
[2024-06-13 15:29] LABS: Albumin 4.1 g/dL (3.4-5.0); Albumin/Globulin Ratio 1.1 (1.1-1.8); Bilirubin Direct 0.2 mg/dL (0-0.2); Bilirubin Indirect, Calculated 0.4 mg/dL (0.2-0.8); Bilirubin Total 0.6 mg/dL (0.2-1.0); Globulin 3.8 g/dL (2.3-3.5); Protein, Total 7.9 g/dL (6.4-8.2)
[2024-06-13] MEDS ORDERED: NA CHLORIDE 0.9% 1,000 ML ONE (16:17)
[2024-06-13] MEDS ORDERED: DIAZEPAM 5 MG TABLET ONE (16:17)
--- NOTE | 2024-06-13 17:01 | ER ---
Nurse's Notes [facility] Name: Dhruv Andino Age: 19 yrs Sex: Male : 2005 Arrival Date: 06/13/2024 Time: 13:25 Bed 26 Private MD: Diagnosis: Blurred vision;Tremor, unspecified Presentation: 06/13 14:00 Chief complaint: Patient states: he has been feeling shaky and having blurry vision for ap3 2 days. patient denies feeling ill. patient reports that prior to these symptoms he had "smoked a CBD pen". Coronavirus screen: At this time, the client does not indicate any symptoms associated with coronavirus-19. Ebola Screen: No symptoms or risks identified at this time. Initial Sepsis Screen: Does the patient meet any 2 criteria? No. Patient's initial sepsis screen is negative. Does the patient have a suspected source of infection? No. Patient's initial sepsis screen is negative. Risk Assessment: Do you want to hurt yourself or someone else? Patient reports no desire to harm self or others. Onset of symptoms was June 11, 2024. 14:00 Method Of Arrival: Ambulatory ap3 14:00 Acuity: TUCKER 3 ap3 Triage Assessment: 14:02 General: Appears in no apparent distress. Behavior is calm, cooperative, appropriate ap3 for age. Pain: Denies pain. EENT: Reports blurred vision. Neuro: Level of Consciousness is awake, alert, obeys commands, Oriented to person, place, time, situation. Cardiovascular: Patient's skin is warm and dry. Respiratory: Airway is patent Respiratory effort is even, unlabored, Respiratory pattern is regular, symmetrical. Historical: - Allergies: 16:15 No Known Allergies; jb4 - PMHx: 16:15 Bipolar disorder; Major Depressive Disorder; jb4 - Immunization history:: Client reports having NOT received the Covid vaccine. Flu vaccine is not up to date. - Infectious Disease History:: Denies. - Social history:: Smoking status: Reported history of juuling and/or vaping. Patient uses CBD. - Family history:: not pertinent. - Hospitalizations: : No recent hospitalization is reported. Screenin:03 Abuse screen: Denies threats or abuse. Nutritional screening: No deficits noted. ap3 Tuberculosis screening: No symptoms or risk factors identified. 16:21 [facility] ED Fall Risk Assessment (Adult) History of falling in the last 3 months, jb4 including since admission No falls in past 3 months (0 pts) Confusion or Disorientation No (0 pts) Intoxicated or Sedated No (0 pts) Impaired Gait Yes (1 pt) Mobility Assist Device Used No (0 pt) Altered Elimination No (0 pt) Score/Fall Risk Level 0 - 2 = Low Risk Oriented to surroundings, Maintained a safe environment. Assessment: 16:14 General: Appears in no apparent distress. comfortable, Behavior is calm, cooperative. jb4 Pain: Denies pain. Neuro: Level of Consciousness is awake, alert, obeys commands, Oriented to person, place, time, situation, Reports blurred vision since 2 days ago. Cardiovascular: Patient's skin is warm and dry. Rhythm is sinus bradycardia. Respiratory: Airway is patent Respiratory effort is even, unlabored, Respiratory pattern is regular, symmetrical. Derm: Skin is intact, Skin is pink, warm \\T\\ dry. Musculoskeletal: Circulation, motion, and sensation intact. Range of motion: intact in all extremities. 17:29 Reassessment: Patient appears in no apparent distress at this time. Patient and/or jb4 family updated on plan of care and expected duration. Pain level reassessed. Patient is alert, oriented x 3, equal unlabored respirations, skin warm/dry/pink. D/c pending ride home. Vital Signs: 14:00 BP 144 / 84; Pulse 54; Resp 18; Temp 98.2(O); Pulse Ox 100% on R/A; Weight 81.65 kg; ap3 Height 5 ft. 11 in. ; 16:21 BP 137 / 83; Pulse 50; Resp 16; Temp 98.1(O); Pulse Ox 100% on R/A; jb4 14:00 Body Mass Index 25.10 (81.65 kg, 180.34 cm) ap3 ED Course: 13:26 Patient arrived in ED. mr 13:26 Sebastian Jovel MD is Attending Physician. rn 14:02 Triage completed. ap3 14:03 Arm band placed on right wrist. ap3 14:03 Patient has correct armband on for positive identification. ap3 14:11 CT Head Brain wo Cont In Process Unspecified. EDMS 14:52 Initial lab(s) drawn, by me, sent to lab. Urine collected: clean catch specimen, clear. bc6 Inserted saline lock: 20 gauge in left antecubital area, using aseptic technique. Blood collected. Flushed with 10 mL NS. 16:21 Provided Education on: plan of care. jb4 16:21 No provider procedures requiring assistance completed. jb4 17:29 IV discontinued, intact, bleeding controlled, No redness/swelling at site. Pressure jb4 dressing applied. 17:40 Maverick Parson, RN is Primary Nurse. jb4 Administered Medications: 16:22 Drug: NS 0.9% IV 1000 ml IV at 1000 ml once; to be given as a bolus over 60 minutes jb4 Route: IV; Rate: 1000 ml; Site: left antecubital; 17:31 Follow up: Response: No adverse reaction; IV Status: Completed infusion; IV Intake: jb4 1000ml 16:22 Drug: Diazepam PO 5 mg PO once Route: PO; jb4 17:31 Follow up: Response: No adverse reaction; Marked relief of symptoms jb4 Medication: 16:21 VIS not applicable for this client. jb4 Intake: 17:31 IV: 1000ml; Total: 1000ml. jb4 Outcome: 17:01 Discharge ordered by . rn 17:29 Discharged to Pt waiting in room for ride home due to Valium administration. jb4 17:29 Condition: stable 17:29 Discharge instructions given to patient, Instructed on discharge instructions, follow up and referral plans. Demonstrated understanding of instructions, follow-up care, 17:40 Discharged to home ambulatory, with family, sister arrived to parts picker patient. jb4 17:41 Patient left the ED. jb4 Signatures: Dispatcher [employer] EDAR Eloina Juarez, Reg Reg Sebastian Andrade MD MD rn Bryson, James, RN RN jb4 Khushbu Chowdary RN RN ap3 Terrie Spencer bc6
--- NOTE | 2024-06-13 17:02 | EDPHYS ---
Physician Documentation [facility] Name: Dhruv Andino Age: 19 yrs Sex: Male : 2005 Arrival Date: 06/13/2024 Time: 13:25 Bed 26 Private MD: ED Physician Sebastian Jovel HPI: 06/13 14:03 This 19 yrs old Male presents to ER via Ambulatory with complaints of Vision Problem, rn Shaking, Stiffness. 14:03 Patient reports tremor and blurred vision, started 2 days ago. States smoked CBD from a rn store 2 days ago as well as 4 days ago. He is not sure what exactly was in it. Patient takes hydroxyzine, Haldol, Depakote, Seroquel. Denies any changes in dosing or overdose. Denies diplopia. No head injury. Patient can see up close but not far away.. Historical: - Allergies: 16:15 No Known Allergies; jb4 - PMHx: 16:15 Bipolar disorder; Major Depressive Disorder; jb4 - Immunization history:: Client reports having NOT received the Covid vaccine. Flu vaccine is not up to date. - Infectious Disease History:: Denies. - Social history:: Smoking status: Reported history of juuling and/or vaping. Patient uses CBD. - Family history:: not pertinent. - Hospitalizations: : No recent hospitalization is reported. ROS: 14:29 Constitutional: Negative for fever, chills, and weight loss, Eyes: Positive for blurred rn vision Cardiovascular: Negative for chest pain, palpitations, and edema, Respiratory: Negative for shortness of breath, cough, wheezing, and pleuritic chest pain, Abdomen/GI: Negative for abdominal pain, nausea, vomiting, diarrhea, and constipation, MS/Extremity: Negative for injury and deformity, Skin: Negative for injury, rash, and discoloration, Neuro: Positive for generalized weakness and tremor Exam: 14:29 Constitutional: This is a well developed, well nourished patient who is awake, alert, rn and in no acute distress. Head/Face: Normocephalic, atraumatic. Eyes: Pupils equal round and reactive to light, extra-ocular motions intact. No evidence of trauma, no corneal defects ENT: Dry mucous membranes Cardiovascular: Bradycardic, regular Respiratory: No respiratory distress. Speaking full sentences Skin: No cyanosis or rash MS/ Extremity: Pulses equal, no cyanosis. Neurovascular intact. Full, normal range of motion. Equal circumference. Neuro: Awake and alert, GCS 15, oriented to person, place, time, and situation. Cranial nerves II-XII grossly intact. Motor strength 5/5 in all extremities. Sensory grossly intact. Cerebellar exam normal. Intermittent tremor of upper extremities. No clonus 16:21 ECG was reviewed by the Attending Physician. rn Vital Signs: 14:00 BP 144 / 84; Pulse 54; Resp 18; Temp 98.2(O); Pulse Ox 100% on R/A; Weight 81.65 kg; ap3 Height 5 ft. 11 in. ; 16:21 BP 137 / 83; Pulse 50; Resp 16; Temp 98.1(O); Pulse Ox 100% on R/A; jb4 14:00 Body Mass Index 25.10 (81.65 kg, 180.34 cm) ap3 MDM: 13:26 Medical Screening Exam initiated rn 16:59 Differential Diagnosis Anticholinergic syndrome, adverse effect of drugs, dehydration, rn adverse effects of prescription drugs. Data reviewed: vital signs, nurses notes, lab test result(s), EKG, radiologic studies, CT scan, and as a result, I will discharge patient. Counseling: I had a detailed discussion with the patient and/or guardian regarding the historical points, exam findings, and any diagnostic results supporting the discharge/admit diagnosis, lab results, radiology results, the need for outpatient follow up, to return to the emergency department if symptoms worsen or persist or if there are any questions or concerns that arise at home. Special discussion: I discussed with the patient/guardian in detail that at this point there is no indication for admission to the hospital. It is understood, however, that if the symptoms persist or worsen the patient needs to return immediately for re-evaluation. Based on the history and exam findings, there is no indication for further emergent testing or inpatient evaluation. I discussed with the patient/guardian the need to see the primary care provider for further evaluation of the symptoms. I discussed with the patient/guardian the need to see the psychiatrist for further evaluation of the symptoms. ED course: No acute findings and workup. Patient feels better. Patient reports vision has improved somewhat. Normal and nonfocal neurological exam otherwise. CT head negative for acute findings. Blood work unremarkable for acute findings. Advised to stop smoking CBD or other drugs that he does not know his contents and also advised to hold off on hydroxyzine as could worsen his symptoms. Recommend PCP and ophthalmology follow-up if continued blurred vision. I have personally reviewed all of the results, including but not limited to blood tests and imaging deemed necessary to safely discharge this patient at this time. All results given to and printed out for patient. I personally went over all the results with the patient and answered all questions. Patient will follow-up with PCP and or specialist as discussed. Return precautions given and understood.. 06/13 13:50 Order name: CBC with Diff; Complete Time: 16:19 rn 06/13 13:50 Order name: Basic Metabolic Panel; Complete Time: 16:19 rn 06/13 13:50 Order name: Urinalysis w/ reflexes; Complete Time: 16:19 rn 06/13 13:50 Order name: Urine Drug Screen; Complete Time: 16:19 rn 06/13 13:50 Order name: LFT's; Complete Time: 16:19 rn 06/13 13:50 Order name: ETOH Level; Complete Time: 16:19 rn 06/13 13:59 Order name: Depakote; Complete Time: 16:53 rn 06/13 13:50 Order name: CT Head Brain wo Cont; Complete Time: 14:29 rn 06/13 13:50 Order name: IV Start; Complete Time: 16:23 rn 06/13 13:50 Order name: EKG - Nurse/Tech; Complete Time: 16:14 rn EC:21 Rate is 48 beats/min. Rhythm is regular. Right axis deviation noted. QRS is positive in rn lead aVF and negative in lead I. QRS interval is normal. QT interval is normal. T waves are Normal. No ST changes noted. Clinical impression: Sinus bradycardia. Interpreted by me. Reviewed by me. Administered Medications: 16:22 Drug: NS 0.9% IV 1000 ml IV at 1000 ml once; to be given as a bolus over 60 minutes jb4 Route: IV; Rate: 1000 ml; Site: left antecubital; 17:31 Follow up: Response: No adverse reaction; IV Status: Completed infusion; IV Intake: jb4 1000ml 16:22 Drug: Diazepam PO 5 mg PO once Route: PO; jb4 17:31 Follow up: Response: No adverse reaction; Marked relief of symptoms jb4 Disposition Summary: 06/13/24 17:01 Discharge Ordered Notes: Location: Home rn Problem: new rn Symptoms: have improved rn Condition: Stable rn Diagnosis - Blurred vision rn - Tremor, unspecified rn Followup: rn - With: Private Physician - When: As needed - Reason: Recheck today's complaints, Re-evaluation by your physician Discharge Instructions: - Discharge Summary Sheet rn - Blurred Vision, Adult rn - Accidental Drug Poisoning, Adult rn - Therapeutic Drug Monitoring rn Forms: - Medication Reconciliation Form rn - Antibiotic learning and development assistant - Prescription Opioid Use rn - Patient Portal Instructions rn - Leadership Thank You Letter rn Signatures: Dispatcher [employer] EDMS Sebastian Jovel MD MD rn Bryson, James RN RN jb4 Khushbu Chowdary RN RN ap3 Corrections: (The following items were deleted from the chart) 13:50 13:50 Head Brain Wo Cont+CT.RAD.BRZ ordered. EDMS EDMS 13:50 13:50 CBC+H.LAB.BRZ ordered. EDMS EDMS 13:50 13:50 BASIC METABOLIC PANEL+C.LAB.BRZ ordered. EDMS EDMS 13:50 13:50 Urinalysis+U.LAB.BRZ ordered. EDMS EDMS 13:50 13:50 URINE DRUG SCREEN+UC.LAB.BRZ ordered. EDMS EDMS 13:50 13:50 HEPATIC FUNCTION+C.LAB.BRZ ordered. EDMS EDMS 13:50 13:50 ETHANOL+C.LAB.BRZ ordered. EDMS EDMS
[2024-06-13 17:59] VITALS: O2SAT 100
[2024-06-13 18:02] VITALS: BP 137/83; TEMP 98.1
--- NOTE | 2024-06-14 11:59 | EKG ---
Test Date: 2024-06-13 Test Time: 16:10:05 Integrative Medicine Physician: VITALIY MEASUREMENT RESULTS: Intervals: Rate: 48 [place]: 174 QRSD: 102 QT: 444 QTc: 396 [place]: P: 48 [place]: 174 QRS: 91 T: 78 INTERPRETIVE STATEMENTS: Sinus bradycardia with premature supraventricular complexes Rightward axis Early repolarization Borderline ECG Compared to ECG 10/06/2023 05:52:24 Atrial premature complex(es) now present First degree AV block no longer present Electronically Signed On 06-14-24 11:57:13 CDT by Joao Ribeiro
== END 2024-06-13 17:41 | disposition home or self-care (01) ==
LOC: ER 13:25
DX: H53.8 Other visual disturbances (principal); R25.1 Tremor, unspecified
CPT/HCPCS: 36415; 70450; 80048; 80076; 80164; 80307; 81003; 82077; 85025; 93005; 96360; 99284; J7030

== ENCOUNTER 2024-07-13 17:19 | Emergency (ER) | payer SELFPAY ==
--- OUTSIDE RECORDS SUMMARY | 2024-07-13 17:22 | XMS REPORT | Continuity of Care Document ---
Author Name Unknown Address [address] [place] [address] [facility] Address [address] [place] [address] Care Team Providers Care Commiss[employer] Production Supervisor Name Role Phone Erich Rockwell Attending Clinician Unavailable Payers Payer Name Policy Type Policy Number Effective Date Expirati on Date Source [facility] P [id number] Encounters Start Date/Time End Date/Time Encounter Type Admission Type Attending Clinicians [facility] Care Department Encounter ID Source 2021-10-21 16:23:[address] [facility] [id number] [facility] 2020-12-19 19:19:[address] [facility] [id number] [facility] 2020-12-19 18:15:[address] [facility] [id number] [facility] 2020-12-19 17:49:[address] [facility] [id number] [facility] 2019-11-01 00:00:00 2019-11-01 00:00:00 Office Visit Erich Rockwell [facility] Encounter/ [id number] [facility]
[2024-07-13] MEDS ORDERED: NA CHLORIDE 0.9% 1,000 ML ONE (19:12)
[2024-07-13 19:25] LABS: Absolute Eosinophils 0.1 K/uL (0-0.5); Absolute Lymphocytes (CBC) 1.9 K/uL (0.7-4.9); Absolute Monocytes 1.2 K/uL (0.1-1.3); Absolute Neutrophil 8.6 K/uL (1.8-8.0); Basophils % 0.4 % (0-1.3); Eosinophils % 0.7 % (0-4.4); Hematocrit 47.7 % (39.6-49.0); Hemoglobin 16.4 g/dL (13.6-17.9); Lymphocytes % 16.1 % (15.3-44.8); MCHC 34.3 g/dL (32.0-36.0); MCV 84.5 fL (80-100); MPV 8.1 fL (7.6-11.3); Monocytes % 10.3 % (3.3-12.3); Neutrophils % 72.5 % (41.7-73.7); Platelets 205 thou/uL (152-406); RBC Red Blood Cell Count 5.64 M/uL (4.33-5.43); Red Cell Distribution Width 15.2 % (12.1-15.2)
[2024-07-13 19:36] LABS: PT Prothrombin Time 13.5 SECONDS (10-13.0); Protime INR 1.19
[2024-07-13] MEDS ORDERED: LORAZEPAM 1 MG TABLET ONE (19:39)
[2024-07-13 19:40] LABS: ALT/SGPT 25 U/L (16-61); AST/SGOT 14 U/L (15-37); Albumin 4.2 g/dL (3.4-5.0); Albumin/Globulin Ratio 1.1 (1.1-1.8); Alkaline Phosphatase 61 U/L (45-117); Anion Gap 10.9 mEq/L (5.0-15.0); BUN Blood Urea Nitrogen 14 mg/dL (7-18); Barbiturates NEGATIVE (NEGATIVE); Benzodiazepines NEGATIVE (NEGATIVE); Bicarbonate 26 mEq/L (21-32); Bilirubin Direct 0.2 mg/dL (0-0.2); Bilirubin Indirect, Calculated 0.2 mg/dL (0.2-0.8); Bilirubin Total 0.4 mg/dL (0.2-1.0); Cocaine NEGATIVE (NEGATIVE); Globulin 3.8 g/dL (2.3-3.5); Glomerular Filtration Rate 109 ml/min (=/>90); Glucose Level 110 mg/dL (74-106); METHAMPHETAM NEGATIVE (NEGATIVE); Methadone NEGATIVE (NEGATIVE); Opiates NEGATIVE (NEGATIVE); Phencyclidine NEGATIVE (NEGATIVE); Potassium 3.9 mEq/L (3.5-5.1); Sodium Level 137 mEq/L (136-145); THC Cannibis POSITIVE (NEGATIVE)
[2024-07-13] MEDS ORDERED: droPERidol 5 MG/2 ML VIAL ONE (20:24)
[2024-07-13] MEDS ORDERED: DIPHENHYDRAMINE 50 MG/ML VIAL ONE (20:24)
--- NOTE | 2024-07-13 20:54 | ER ---
Nurse's Notes [facility] Name: Dhruv Andino Age: 19 yrs Sex: Male : 2005 Arrival Date: 07/13/2024 Time: 17:19 Bed 5 Private MD: Diagnosis: Anxiety disorder, unspecified Presentation: 07/13 17:46 Chief complaint: Patient states: [facility] [employer] [facility] [employer] [facility] , he iw got drunk that night and he has had the shakes since then, they put him on several different medications. Coronavirus screen: At this time, the client does not indicate any symptoms associated with coronavirus-19. Ebola Screen: No symptoms or risks identified at this time. Initial Sepsis Screen: Does the patient meet any 2 criteria? No. Patient's initial sepsis screen is negative. Does the patient have a suspected source of infection? No. Patient's initial sepsis screen is negative. Risk Assessment: Do you want to hurt yourself or someone else? Patient reports no desire to harm self or others. Onset of symptoms was July 11, 2024. 17:46 Method Of Arrival: Ambulatory iw 17:46 Acuity: TUCKER 3 iw Triage Assessment: 18:00 General: Appears in no apparent distress. Behavior is agitated, anxious. Pain: Denies bp pain. EENT: No deficits noted. Neuro: Reports TREMORS. Cardiovascular: No deficits noted. Respiratory: No deficits noted. GI: No signs and/or symptoms were reported involving the gastrointestinal system. : No signs and/or symptoms were reported regarding the genitourinary system. Derm: No deficits noted. Musculoskeletal: No deficits noted. Historical: - Allergies: 17:47 No Known Allergies; iw - Home Meds: 17:47 Haldol Oral 10 mg three times a day [Active]; divalproex 500 mg oral tablet, delayed iw release (enteric coated) 2 times per day [Active]; Seroquel 500 mg Oral every evening [Active]; hydroxyzine HCl 25 mg Oral tablet as needed [Active]; - PMHx: 17:47 Bipolar disorder; Major Depressive Disorder; iw - PSHx: 17:47 None; iw - Immunization history:: Adult Immunizations not up to date. - Infectious Disease History:: Denies. - Social history:: Smoking status: Patient denies any tobacco usage or history of. Patient uses alcohol, occasionally. Patient/guardian denies using street drugs. Screenin:43 [facility] ED Fall Risk Assessment (Adult) History of falling in the last 3 months, bm8 including since admission No falls in past 3 months (0 pts) Confusion or Disorientation No (0 pts) Intoxicated or Sedated No (0 pts) Impaired Gait No (0 pts) Mobility Assist Device Used No (0 pt) Altered Elimination No (0 pt) Score/Fall Risk Level 0 - 2 = Low Risk Oriented to surroundings, Maintained a safe environment, Educated pt \T\ family on fall prevention, incl call for assistance when getting out of bed, Assessed \T\ reinforced patient's understanding of fall precautions, Hourly rounding (assess needs \T\ fall precautionary measures) done, Used ambulatory aids as needed (educated on \T\ assisted with), Used gait belt as appropriate. Abuse screen: Denies threats or abuse. Nutritional screening: No deficits noted. Tuberculosis screening: No symptoms or risk factors identified. Assessment: 18:46 Reassessment: Patient and/or family updated on plan of care and expected duration. Pain ll1 level reassessed. 19:43 Reassessment: Patient appears in no apparent distress at this time. Patient and/or bm8 family updated on plan of care and expected duration. Pain level reassessed. Patient is alert, oriented x 3, equal unlabored respirations, skin warm/dry/pink. Patient denies pain at this time. Neuro: Reports tremors for about 2 days. 20:28 Reassessment: Patient appears in no apparent distress at this time. Patient and/or bm8 family updated on plan of care and expected duration. Pain level reassessed. Patient is alert, oriented x 3, equal unlabored respirations, skin warm/dry/pink. Patient denies pain at this time. Patient states symptoms have improved. 21:25 Reassessment: Patient appears in no apparent distress at this time. Patient and/or bm8 family updated on plan of care and expected duration. Pain level reassessed. Patient is alert, oriented x 3, equal unlabored respirations, skin warm/dry/pink. Patient denies pain at this time. Patient states feeling better. Patient states symptoms have improved. Vital Signs: 17:46 BP 142 / 103; Pulse 86; Resp 19; Temp 98.4(O); Pulse Ox 100% on R/A; Weight 81.65 kg; iw Height 5 ft. 11 in. ; 19:43 BP 97 / 81; Pulse 81; Resp 19; Temp 98.4; Pulse Ox 97% ; Pain 0/10; bm8 20:28 BP 141 / 86; Pulse 86; Resp 18; Temp 98.4; Pulse Ox 97% ; Pain 0/10; bm8 21:25 BP 134 / 80; Pulse 78; Resp 18; Temp 98.4; Pulse Ox 98% ; Pain 0/10; bm8 17:46 Body Mass Index 25.11 (81.65 kg, 180.34 cm) iw 19:43 Pain Scale: Adult bm8 20:28 Pain Scale: Adult bm8 21:25 Pain Scale: Adult bm8 Sathish Coma Score: 19:43 Eye Response: spontaneous(4). Motor Response: obeys commands(6). Verbal Response: bm8 oriented(5). Total: 15. 20:28 Eye Response: spontaneous(4). Motor Response: obeys commands(6). Verbal Response: bm8 oriented(5). Total: 15. 21:25 Eye Response: spontaneous(4). Motor Response: obeys commands(6). Verbal Response: bm8 oriented(5). Total: 15. ED Course: 17:22 Patient arrived in ED. al6 17:23 Alaina Blue PA-C is PHCP. sb4 17:23 Eren Saunders DO is Attending Physician. sb4 17:47 Triage completed. iw 17:50 Arm band placed on. iw 18:46 Patient placed in an exam room, on a stretcher. ll1 18:48 Piotr Saenz, RN is Primary Nurse. bp 19:18 Acetaminophen Sent. vk 19:18 Basic Metabolic Panel Sent. vk 19:18 CBC with Diff Sent. vk 19:24 Urine Drug Screen Sent. vk 19:24 Salicylate Sent. vk 19:24 Ptt, Activated Sent. vk 19:24 Hepatic Function Sent. vk 19:24 PT-INR Sent. vk 19:24 CBC with Diff Sent. vk 19:24 Basic Metabolic Panel Sent. vk 19:24 Acetaminophen Sent. vk 19:24 ETOH Level Sent. vk 19:43 Patient has correct armband on for positive identification. Placed in gown. Bed in low bm8 position. Call light in reach. Side rails up X2. Client placed on continuous cardiac and pulse oximetry monitoring. NIBP monitoring applied. site monitor on. Pulse ox on. NIBP on. Door closed. Noise minimized. Warm blanket given. Pillow given. Verbal reassurance given. Head of bed elevated. 19:43 No provider procedures requiring assistance completed. Inserted saline lock: 20 gauge bm8 in right antecubital area, using aseptic technique. Blood collected. Flushed with 10 mL NS. 20:54 Abhay Mitchell MD is Referral Physician. sb4 21:25 Provided Education on: post er care. bm8 21:25 IV discontinued, intact, bleeding controlled, No redness/swelling at site. Pressure bm8 dressing applied. Administered Medications: 19:15 Not Given (Physician Discretion): ativan1 mg IVP once sb4 19:20 CANCELLED (Physician Discretion): diazepam5 mg IVP once sb4 19:35 Drug: NS 0.9% IV 1000 ml IV at 1000 ml once; to be given as a bolus over 60 minutes bm8 Route: IV; Rate: 1000 ml; Site: right antecubital; 21:24 Follow up: Response: No adverse reaction; IV Status: Completed infusion bm8 19:43 Drug: LORazepam PO 1 mg PO once Route: PO; bm8 21:24 Follow up: Response: No adverse reaction bm8 20:28 Drug: Droperidol IVP 1.25 mg IVP once Route: IVP; Site: right antecubital; kd4 21:24 Follow up: Response: No adverse reaction bm8 20:28 Drug: diphenhydrAMINE IVP 25 mg IVP once Route: IVP; Site: right antecubital; kd4 21:24 Follow up: Response: No adverse reaction bm8 Medication: 19:43 VIS not applicable for this client. bm8 Outcome: 20:54 Discharge ordered by . sb4 21:25 Discharged to home ambulatory, bm8 21:25 Condition: stable 21:25 Discharge instructions given to patient, Instructed on discharge instructions, follow up and referral plans. Demonstrated understanding of instructions, follow-up care, medications, 21:26 Patient left the ED. bm8 Signatures: Carmen Odell RN RN iw Piotr Saenz RN RN bp Lewis, Lynsay, RN RN ll1 Alaina Blue PA-C PAHarish sb4 Leslie Thomas Brad, RN RN bm8 Krystle Garcia RN RN kd4 Talita Alexander6 Corrections: (The following items were deleted from the chart) 17:50 17:46 BP 142 / 103; Pulse 86bpm; Resp 19bpm; Pulse Ox 100% RA; 81.65 kg; Height 5 ft. iw 11 in.; BMI: 25.1; iw
--- NOTE | 2024-07-13 20:54 | EDPHYS ---
Physician Documentation [facility] Name: Dhruv Andino Age: 19 yrs Sex: Male : 2005 Arrival Date: 07/13/2024 Time: 17:19 Bed 5 Private MD: ED Physician Eren Saunders HPI: 07/13 17:49 This 19 yrs old Male presents to ER via Ambulatory with complaints of shakes. sb4 17:49 Patient states that he was released from inpatient psychiatric facility 2 days ago for sb4 suicidal ideations. States that he drank a copious amount of alcohol that evening and ever since, has been experiencing shaking and blurry vision. Reports compliance with all medications, no dosage adjustments. Historical: - Allergies: 17:47 No Known Allergies; iw - Home Meds: 17:47 Haldol Oral 10 mg three times a day [Active]; divalproex 500 mg oral tablet, delayed iw release (enteric coated) 2 times per day [Active]; Seroquel 500 mg Oral every evening [Active]; hydroxyzine HCl 25 mg Oral tablet as needed [Active]; - PMHx: 17:47 Bipolar disorder; Major Depressive Disorder; iw - PSHx: 17:47 None; iw - Immunization history:: Adult Immunizations not up to date. - Infectious Disease History:: Denies. - Social history:: Smoking status: Patient denies any tobacco usage or history of. Patient uses alcohol, occasionally. Patient/guardian denies using street drugs. ROS: 18:30 Constitutional: Negative for fever, chills, and weight loss, sb4 18:30 Psych: Positive for anxiety, 18:30 All other systems are negative, Exam: 18:39 Head/Face: Normocephalic, atraumatic. Eyes: Extra-ocular motions intact. Periorbital sb4 areas with no swelling, redness, or edema. ENT: Mucous membranes moist. Cardiovascular: Regular rate and rhythm with a normal S1 and S2. Respiratory: No increased work of breathing, no retractions or nasal flaring. Abdomen/GI: Soft, non-tender, no distension. Skin: Warm, dry with normal turgor. Normal color with no rashes, no lesions, and no evidence of cellulitis. 18:39 Constitutional: The patient appears alert, awake, anxious, 18:39 Psych: Behavior/mood is cooperative, anxious, Affect is calm, Patient has no thoughts/intents to harm self or others. Vital Signs: 17:46 BP 142 / 103; Pulse 86; Resp 19; Temp 98.4(O); Pulse Ox 100% on R/A; Weight 81.65 kg; iw Height 5 ft. 11 in. ; 19:43 BP 97 / 81; Pulse 81; Resp 19; Temp 98.4; Pulse Ox 97% ; Pain 0/10; bm8 20:28 BP 141 / 86; Pulse 86; Resp 18; Temp 98.4; Pulse Ox 97% ; Pain 0/10; bm8 21:25 BP 134 / 80; Pulse 78; Resp 18; Temp 98.4; Pulse Ox 98% ; Pain 0/10; bm8 17:46 Body Mass Index 25.11 (81.65 kg, 180.34 cm) iw 19:43 Pain Scale: Adult bm8 20:28 Pain Scale: Adult bm8 21:25 Pain Scale: Adult bm8 [place] Coma Score: 19:43 Eye Response: spontaneous(4). Motor Response: obeys commands(6). Verbal Response: bm8 oriented(5). Total: 15. 20:28 Eye Response: spontaneous(4). Motor Response: obeys commands(6). Verbal Response: bm8 oriented(5). Total: 15. 21:25 Eye Response: spontaneous(4). Motor Response: obeys commands(6). Verbal Response: bm8 oriented(5). Total: 15. MDM: 17:24 Medical Screening Exam initiated sb4 18:39 Differential diagnosis: dehydration, electrolyte abnormality, drug abuse, alcohol sb4 abuse, medication adverse reaction. 23:19 Data reviewed: vital signs, nurses notes, lab test result(s), and as a result, I will sb4 discharge patient. Counseling: I had a detailed discussion with the patient and/or guardian regarding the historical points, exam findings, and any diagnostic results supporting the discharge/admit diagnosis, lab results, the need for outpatient follow up, for definitive care, a psychiatrist, to return to the emergency department if symptoms worsen or persist or if there are any questions or concerns that arise at home. 07/13 17:49 Order name: Acetaminophen; Complete Time: 19:43 sb4 07/13 17:49 Order name: Basic Metabolic Panel; Complete Time: 19:43 sb4 07/13 17:49 Order name: CBC with Diff; Complete Time: 19:36 sb4 07/13 17:49 Order name: ETOH Level; Complete Time: 19:58 sb4 07/13 17:49 Order name: Hepatic Function; Complete Time: 19:43 sb4 07/13 17:49 Order name: PT-INR; Complete Time: 19:37 sb4 07/13 17:49 Order name: Ptt, Activated; Complete Time: 19:37 sb4 07/13 17:49 Order name: Salicylate; Complete Time: 20:15 sb4 07/13 17:49 Order name: Urine Drug Screen; Complete Time: 19:41 sb4 07/13 17:51 Order name: Valproic Acid (depakote); Complete Time: 20:44 sb4 07/13 17:49 Order name: IV Saline Lock; Complete Time: 19:18 sb4 07/13 17:49 Order name: Labs collected and sent; Complete Time: 19:18 sb4 07/13 17:49 Order name: Suicide Screening ([place]); Complete Time: 19:35 sb4 Administered Medications: 19:15 Not Given (Physician Discretion): ativan1 mg IVP once sb4 19:20 CANCELLED (Physician Discretion): diazepam5 mg IVP once sb4 19:35 Drug: NS 0.9% IV 1000 ml IV at 1000 ml once; to be given as a bolus over 60 minutes bm8 Route: IV; Rate: 1000 ml; Site: right antecubital; 21:24 Follow up: Response: No adverse reaction; IV Status: Completed infusion bm8 19:43 Drug: LORazepam PO 1 mg PO once Route: PO; bm8 21:24 Follow up: Response: No adverse reaction bm8 20:28 Drug: Droperidol IVP 1.25 mg IVP once Route: IVP; Site: right antecubital; kd4 21:24 Follow up: Response: No adverse reaction bm8 20:28 Drug: diphenhydrAMINE IVP 25 mg IVP once Route: IVP; Site: right antecubital; kd4 21:24 Follow up: Response: No adverse reaction bm8 Disposition: 18:02 I was immediately available on-site in the Emergency Department for consultation in the ms3 care of the patient. Disposition Summary: 07/13/24 20:54 Discharge Ordered Notes: Location: Home sb4 Problem: new sb4 Symptoms: have improved sb4 Condition: Stable sb4 Diagnosis - Anxiety disorder, unspecified sb4 Followup: sb4 - With: Abhay Mitchell MD - When: 1 week - Reason: Recheck today's complaints, Re-evaluation by your physician Discharge Instructions: - Discharge Summary Sheet sb4 - Managing Anxiety, Adult sb4 Forms: - Patient Portal Instructions sb4 - Leadership Thank You Letter sb4 Signatures: Dispatcher [employer] EDMS Carmen Odell, RN RN iw Eren Saunders DO DO ms3 Alaina Blue PA-C PAHarish sb4 Thierno Walden, RN RN bm8 Krystle Garcia, RN RN kd4 Corrections: (The following items were deleted from the chart) 17:50 17:49 ACETAMINOPHEN+C.LAB.BRZ ordered. EDMS EDMS 17:50 17:49 BASIC METABOLIC PANEL+C.LAB.BRZ ordered. EDMS EDMS 17:50 17:49 CBC+H.LAB.BRZ ordered. EDMS EDMS 17:50 17:49 ETHANOL+C.LAB.BRZ ordered. EDMS EDMS 17:50 17:49 HEPATIC FUNCTION+C.LAB.BRZ ordered. EDMS EDMS 17:50 17:49 PROTIME (+INR)+COAG.LAB.BRZ ordered. EDMS EDMS 17:50 17:49 PTT, ACTIVATED+COAG.LAB.BRZ ordered. EDMS EDMS 17:50 17:49 SALICYLATE+C.LAB.BRZ ordered. EDMS EDMS 17:50 17:49 URINE DRUG SCREEN+UC.LAB.BRZ ordered. EDMS EDMS 17:51 17:51 VALPROIC ACID (DEPAKOTE)+C.LAB.BRZ ordered. EDMS EDMS 19:20 19:15 Diazepam IVP 5 mg IVP once ordered. sb4 sb4
[2024-07-13 21:41] VITALS: TEMP 98.4
[2024-07-13 21:50] VITALS: BP 134/80; O2SAT 98
== END 2024-07-13 21:26 | disposition home or self-care (01) ==
LOC: ER 17:19
DX: F41.9 Anxiety disorder, unspecified (principal)
CPT/HCPCS: 36415; 80048; 80076; 80143; 80164; 80179; 80307; 82077; 85025; 85610; 85730; 96361; 96374; 96375; 99285; J1200; J1790; J7030

== ENCOUNTER 2024-07-14 15:38 | Emergency (ER) | payer SELFPAY ==
--- OUTSIDE RECORDS SUMMARY | 2024-07-14 15:40 | XMS REPORT | Continuity of Care Document ---
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 Name Role Phone Erich Rockwell Attending Clinician Unavailable Payers Payer Name Policy Type Policy Number Effective Date Expirati on Date Source [facility] P [id number] Encounters Start Date/Time End Date/Time Encounter Type Admission Type Attending Clinicians [facility] Emergency Department Facility Care Department Encounter ID Source 2021-10-21 16:23:08 Outpatient [facility] [id number] [facility] 2020-12-19 19:19:47 Outpatient [facility] [id number] [facility] 2020-12-19 18:15:06 Outpatient [facility] [id number] [facility] 2020-12-19 17:49:34 Outpatient [facility] [id number] [facility] 2019-11-01 00:00:00 2019-11-01 00:00:00 Office Visit Erich Rockwell [facility] Encounter/ [id number] [facility]
[2024-07-14 16:33] LABS: Absolute Eosinophils 0.1 K/uL (0-0.5); Absolute Lymphocytes (CBC) 1.7 K/uL (0.7-4.9); Absolute Monocytes 0.8 K/uL (0.1-1.3); Absolute Neutrophil 5.2 K/uL (1.8-8.0); Basophils % 0.5 % (0-1.3); Eosinophils % 0.7 % (0-4.4); Hematocrit 46.2 % (39.6-49.0); Lymphocytes % 22.3 % (15.3-44.8); MCH 29.1 pg (27.0-35.0); MCHC 34.6 g/dL (32.0-36.0); MCV 84.1 fL (80-100); MPV 7.8 fL (7.6-11.3); Monocytes % 10.2 % (3.3-12.3); Neutrophils % 66.3 % (41.7-73.7); Nucleated Red Blood Cells % 0.2 % (0-0); Platelets 204 thou/uL (152-406); Red Cell Distribution Width 15.4 % (12.1-15.2)
[2024-07-14 16:46] LABS: PT Prothrombin Time 13.4 SECONDS (10-13.0); Protime INR 1.18
[2024-07-14 16:59] LABS: ALT/SGPT 23 U/L (16-61); AST/SGOT 13 U/L (15-37); Albumin 4.2 g/dL (3.4-5.0); Albumin/Globulin Ratio 1.1 (1.1-1.8); Alkaline Phosphatase 56 U/L (45-117); Anion Gap 10.8 mEq/L (5.0-15.0); BUN Blood Urea Nitrogen 11 mg/dL (7-18); Bicarbonate 27 mEq/L (21-32); Bilirubin Total 0.3 mg/dL (0.2-1.0); Globulin 3.8 g/dL (2.3-3.5); Glomerular Filtration Rate 105 ml/min (=/>90); Glucose Level 106 mg/dL (74-106); Potassium 3.8 mEq/L (3.5-5.1); Sodium Level 141 mEq/L (136-145)
[2024-07-14 17:00] LABS: Bilirubin Direct < 0.2 mg/dL (0-0.2); Bilirubin Indirect, Calculated 0.1 mg/dL (0.2-0.8)
[2024-07-14 17:19] LABS: Barbiturates NEGATIVE (NEGATIVE); Benzodiazepines NEGATIVE (NEGATIVE); Cocaine NEGATIVE (NEGATIVE); METHAMPHETAM NEGATIVE (NEGATIVE); Methadone NEGATIVE (NEGATIVE); Opiates NEGATIVE (NEGATIVE); Phencyclidine NEGATIVE (NEGATIVE); THC Cannibis POSITIVE (NEGATIVE)
--- NOTE | 2024-07-14 17:34 | EDPHYS ---
Physician Documentation [facility] Name: Dhruv Andino Age: 19 yrs Sex: Male : 2005 Arrival Date: 07/14/2024 Time: 15:38 Bed 13 Private MD: ED Physician Eren Saunders HPI: 07/14 16:05 This 19 yrs old Male presents to ER via Unassigned with complaints of Suicidal Ideation.sb4 16:05 The patient presents to the emergency department with a history of a suicide gesture, sb4 where the patient took pills/medications, suicide ideation. Onset: The symptoms/episode began/occurred just prior to arrival. Past psychiatric history: Prior diagnosis: bipolar disorder, Psychiatric medications include: Haldol, Valproic acid, hydroxyzine, Seroquel. 16:22 Patient stated that he took several pills at 1500, did not state what medications they sb4 were. He does have active prescriptions for Haldol 10 mg, Seroquel 203 100 mg, Depakote, and hydroxyzine 25 mg. He additionally stated that [place] the [place] by car. PD did place him under an emergency prison order. Historical: - Allergies: 16:11 No Known Allergies; jl7 - Home Meds: 16:00 Haldol Oral 10 mg three times a day [Active]; divalproex 500 mg Oral tablet 1 tab 2 kc6 times per day [Active]; hydroxyzine HCl 50 mg oral tablet 1 tab 4 times per day [Active]; omeprazole 20 mg oral capsule,delayed release (e.c.) daily [Active]; quetiapine 200 mg oral tablet 1 tab [Active]; - PMHx: 16:11 Bipolar disorder; Major Depressive Disorder; Anxiety; jl7 - PSHx: 16:00 None; kc6 - Immunization history:: Adult Immunizations unknown. - Infectious Disease History:: Denies. - Social history:: Smoking status: Patient denies any tobacco usage or history of. ROS: 16:05 Constitutional: Negative for fever, chills, and weight loss, sb4 16:05 Psych: Positive for suicide gesture, suicidal ideation, 16:05 All other systems are negative, Exam: 16:05 Constitutional: This is a well developed, well nourished patient who is awake, alert, sb4 and in no acute distress. Head/Face: Normocephalic, atraumatic. Eyes: Extra-ocular motions intact. Periorbital areas with no swelling, redness, or edema. ENT: Mucous membranes moist. Respiratory: No increased work of breathing, no retractions or nasal flaring. Skin: Warm, dry with normal turgor. Normal color with no rashes, no lesions, and no evidence of cellulitis. 16:05 Psych: Behavior/mood is cooperative, suicidal, Affect is calm, Patient having thoughts of suicide. Judgement / Insight is normal. Delusions/hallucinations are not present. Vital Signs: 16:00 BP 130 / 84; Pulse 78; Resp 18 S; Temp 98.5(TE); Pulse Ox 100% on R/A; Height 5 ft. 8 kc6 in. (R); Pain 0/10; 19:30 BP 130 / 74; Pulse 84; Resp 18; Pulse Ox 98% ; cp4 05 06:00 BP 132 / 73; Pulse 82; Resp 18; Pulse Ox 98% ; cp4 07:18 BP 129 / 76; Pulse 82; Resp 18; Temp 98.6; Pulse Ox 99% on R/A; ph 07/14 16:00 Pain Scale: Adult kc6 MDM: 07/14 15:38 Medical Screening Exam initiated sb4 16:07 Differential diagnosis: drug withdrawal. acute psychotic break, depression, psychosis sb4 secondary to non-compliance. 18:10 Data reviewed: vital signs, nurses notes, EMS record, lab test result(s), EKG. sb4 Counseling: I had a detailed discussion with the patient and/or guardian regarding the historical points, exam findings, and any diagnostic results supporting the discharge/admit diagnosis, lab results, the need to transfer to another facility, [facility] does not immediately have the required specialist. 07/14 15:46 Order name: Acetaminophen; Complete Time: 17:00 sb4 07/14 15:46 Order name: Basic Metabolic Panel; Complete Time: 17:00 sb4 07/14 15:46 Order name: CBC with Diff; Complete Time: 16:35 sb4 07/14 15:46 Order name: ETOH Level; Complete Time: 16:53 sb4 07/14 15:46 Order name: Hepatic Function; Complete Time: 17:00 sb4 07/14 15:46 Order name: PT-INR; Complete Time: 16:53 sb4 07/14 15:46 Order name: Ptt, Activated; Complete Time: 16:53 sb4 07/14 15:46 Order name: Salicylate; Complete Time: 17:21 sb4 07/14 15:46 Order name: Urine Drug Screen; Complete Time: 17:21 sb4 07/14 16:23 Order name: Valproic Acid (depakote); Complete Time: 19:15 sb4 07/14 15:46 Order name: EKG; Complete Time: 15:47 sb4 07/14 15:46 Order name: EKG - Nurse/Tech; Complete Time: 16:20 sb4 07/14 15:46 Order name: IV Saline Lock; Complete Time: 16:20 sb4 07/14 15:46 Order name: Labs collected and sent; Complete Time: 16:20 sb4 07/14 15:46 Order name: Suicide Precautions; Complete Time: 16:20 sb4 07/14 15:46 Order name: Suicide Screening ([place]); Complete Time: 16:20 sb4 07/14 18:06 Order name: EKG - Nurse/Tech: repeat please :); Complete Time: 18:24 sb4 EC:31 Rate is 66 beats/min. Rhythm is irregular, A flutter. QRS interval is normal at 94 sb4 msec. QT interval is normal at 374 msec. Clinical impression: No evidence of ischemia and Patient noted to be shaking during EKGs. 2 EKGs completed, both suggestive of a flutter, however I do not believe he has any underlying cardiac pathology, I believe this is secondary to artifact. Interpreted by me. Reviewed by me. Administered Medications: 18:34 Drug: LORazepam PO 2 mg PO once Route: PO; kc6 19:00 Follow up: Response: No adverse reaction; RASS: Alert and Calm (0) kc6 Disposition: 21:08 I was immediately available on-site in the Emergency Department for consultation in the ms3 care of the patient. Disposition Summary: 07/14/24 17:33 Transfer Ordered Notes: Transfer Location: Psych Facility sb4 Reason: Higher level of care sb4 Condition: Fair sb4 Problem: new sb4 Symptoms: are unchanged sb4 Accepting Physician: psych(07/15/24 07:50) ph Diagnosis - Suicidal ideations sb4 Forms: - Medication Reconciliation Form sb4 - SBAR form sb4 Signatures: Dispatcher [employer] Vernell Maza RN RN ph Norma Gagnon RN RN jl7 Eren Saunders, DO EARL ms3 Mis Aguilar RN RN kc6 Alaina Blue, MARICEL CONNELLY sb4 Corrections: (The following items were deleted from the chart) 07/15 07:50 07/14 17:33 psych sb4 ph
--- NOTE | 2024-07-14 17:34 | ER ---
Nurse's Notes [facility] Name: Dhruv Andino Age: 19 yrs Sex: Male : 2005 Arrival Date: 07/14/2024 Time: 15:[address] Bed [address] [facility] MD: Diagnosis: Suicidal ideations Presentation: 07/14 16:00 Initial Sepsis Screen: Does the patient meet any 2 criteria? No. Patient's initial kc6 sepsis screen is negative. Does the patient have a suspected source of infection? No. Patient's initial sepsis screen is negative. 16:05 Chief complaint: [employer] reports pt reported to them that he wanted to walk in traffic and jl7 get hit by a car. Coronavirus screen: At this time, the client does not indicate any symptoms associated with coronavirus-19. Ebola Screen: No symptoms or risks identified at this time. 16:05 Method Of Arrival: Ambulatory jl7 16:11 Risk Assessment: Do you want to hurt yourself or someone else? Patient reports jl7 desire/thoughts of hurting themselves or someone else. Provider notified. Onset of symptoms is unknown. 16:11 Acuity: TUCKER 2 jl7 Historical: - Allergies: 16:11 No Known Allergies; jl7 - Home Meds: 16:00 Haldol Oral 10 mg three times a day [Active]; divalproex 500 mg Oral tablet 1 tab 2 kc6 times per day [Active]; hydroxyzine HCl 50 mg oral tablet 1 tab 4 times per day [Active]; omeprazole 20 mg oral capsule,delayed release (e.c.) daily [Active]; quetiapine 200 mg oral tablet 1 tab [Active]; - PMHx: 16:11 Bipolar disorder; Major Depressive Disorder; Anxiety; jl7 - PSHx: 16:00 None; kc6 - Immunization history:: Adult Immunizations unknown. - Infectious Disease History:: Denies. - Social history:: Smoking status: Patient denies any tobacco usage or history of. Screenin:00 [facility] ED Fall Risk Assessment (Adult) History of falling in the last 3 months, kc6 including since admission No falls in past 3 months (0 pts) Confusion or Disorientation No (0 pts) Intoxicated or Sedated No (0 pts) Impaired Gait No (0 pts) Mobility Assist Device Used No (0 pt) Altered Elimination No (0 pt) Score/Fall Risk Level 0 - 2 = Low Risk Oriented to surroundings. Abuse screen: Denies threats or abuse. Denies injuries from another. Nutritional screening: No deficits noted. Tuberculosis screening: No symptoms or risk factors identified. Assessment: 16:00 General: Appears in no apparent distress. comfortable, well groomed, well developed, kc6 Behavior is calm, cooperative, appropriate for age, quiet. Pain: Denies pain. Neuro: Level of Consciousness is awake, alert, obeys commands, Oriented to person, place, time, situation, Appropriate for age. Cardiovascular: Capillary refill < 3 seconds. Respiratory: Airway is patent Trachea midline Respiratory effort is even, unlabored, Respiratory pattern is regular, symmetrical. GI: No signs and/or symptoms were reported involving the gastrointestinal system. : No signs and/or symptoms were reported regarding the genitourinary system. EENT: No signs and/or symptoms were reported regarding the EENT system. Derm: No signs and/or symptoms reported regarding the dermatologic system. Skin is intact, is healthy with good turgor, Skin is pink, warm \\T\\ dry. Musculoskeletal: No signs and/or symptoms reported regarding the musculoskeletal system. Circulation, motion, and sensation intact. Range of motion: intact in all extremities. 17:00 Reassessment: Patient appears in no apparent distress at this time. No changes from kc6 previously documented assessment. Patient and/or family updated on plan of care and expected duration. Pain level reassessed. Patient is alert, oriented x 3, equal unlabored respirations, skin warm/dry/pink. 18:01 Reassessment: Patient appears in no apparent distress at this time. No changes from kc6 previously documented assessment. Patient and/or family updated on plan of care and expected duration. Pain level reassessed. Patient is alert, oriented x 3, equal unlabored respirations, skin warm/dry/pink. 19:00 Reassessment: Patient appears in no apparent distress at this time. No changes from kc6 previously documented assessment. Patient and/or family updated on plan of care and expected duration. Pain level reassessed. Patient is alert, oriented x 3, equal unlabored respirations, skin warm/dry/pink. 20:00 Reassessment: Patient appears in no apparent distress at this time. No changes from cp4 previously documented assessment. Patient and/or family updated on plan of care and expected duration. Pain level reassessed. Patient is alert, oriented x 3, equal unlabored respirations, skin warm/dry/pink. 21:00 Reassessment: Patient appears in no apparent distress at this time. Patient and/or cp4 family updated on plan of care and expected duration. Pain level reassessed. Patient is alert, oriented x 3, equal unlabored respirations, skin warm/dry/pink. 22:00 Reassessment: Patient appears in no apparent distress at this time. Patient and/or cp4 family updated on plan of care and expected duration. Pain level reassessed. Patient is alert, oriented x 3, equal unlabored respirations, skin warm/dry/pink. 23:00 Reassessment: Patient appears in no apparent distress at this time. Patient and/or cp4 family updated on plan of care and expected duration. Pain level reassessed. Patient is alert, oriented x 3, equal unlabored respirations, skin warm/dry/pink. 07/15 00:00 Reassessment: Patient appears in no apparent distress at this time. Patient and/or cp4 family updated on plan of care and expected duration. Pain level reassessed. Patient is alert, oriented x 3, equal unlabored respirations, skin warm/dry/pink. 01:00 Reassessment: Patient appears in no apparent distress at this time. Patient and/or cp4 family updated on plan of care and expected duration. Pain level reassessed. Patient is alert, oriented x 3, equal unlabored respirations, skin warm/dry/pink. 02:00 Reassessment: Patient appears in no apparent distress at this time. Patient and/or cp4 family updated on plan of care and expected duration. Pain level reassessed. Patient is alert, oriented x 3, equal unlabored respirations, skin warm/dry/pink. 03:00 Reassessment: Patient appears in no apparent distress at this time. Patient and/or cp4 family updated on plan of care and expected duration. Pain level reassessed. Patient is alert, oriented x 3, equal unlabored respirations, skin warm/dry/pink. 04:00 Reassessment: Patient appears in no apparent distress at this time. Patient and/or cp4 family updated on plan of care and expected duration. Pain level reassessed. Patient is alert, oriented x 3, equal unlabored respirations, skin warm/dry/pink. 05:00 Reassessment: Patient appears in no apparent distress at this time. Patient and/or cp4 family updated on plan of care and expected duration. Pain level reassessed. Patient is alert, oriented x 3, equal unlabored respirations, skin warm/dry/pink. 06:00 Reassessment: Patient appears in no apparent distress at this time. Patient and/or cp4 family updated on plan of care and expected duration. Pain level reassessed. Patient is alert, oriented x 3, equal unlabored respirations, skin warm/dry/pink. 07:16 Reassessment: Patient appears in no apparent distress at this time. Patient and/or ph family updated on plan of care and expected duration. Pain level reassessed. Patient is alert, oriented x 3, equal unlabored respirations, skin warm/dry/pink. Pt signed transfer form, awaiting EMS for transport to [facility]. 07:49 Reassessment: [place] [facility] at bedside, pt transferred to [facility]. Psych: 07/14 16:00 [place] Suicide Severity Screening: In the past month, have you wished you were kc6 or wished you could go to sleep and not wake up? Patient responds "yes." Based off the client's responses additional C-SSRS screening is required. "In the past month, have you actually had any thoughts of killing yourself?" Patient responds "yes." Based off the client's response additional [place] suicide severity screening questions to be further documented on paper forms. "In your lifetime, have you ever done anything, started to do anything, or prepared to do anything to end your life?" Patient responds "yes." Patient reports suicidal intent within 3 past months. Patient reports suicidal intent occurred greater than 3 months prior. Subjective: Patient's mood is sad, Delusions are denied, Hallucinations are denied Having thoughts of suicide. Plan for suicide is walk out in front of traffic. Objective: Patient is cooperative, Speech is normal, Affect is flat. Interventions: Removed personal items and placed in bag. Patient placed in hospital gown. Searched person for dangerous items. Urine collected and sent for urine drug test. Belonging list filled out. Safety Checks: Personal items have been removed. Door is closed to patient's room. No visitors are present at this time. Patient uses Last use was 2 days ago. Commitment: Patient will be an involuntary commitment. Commitment papers completed. Vital Signs: 16:00 BP 130 / 84; Pulse 78; Resp 18 S; Temp 98.5(TE); Pulse Ox 100% on R/A; Height 5 ft. 8 kc6 in. (R); Pain 0/10; 19:30 BP 130 / 74; Pulse 84; Resp 18; Pulse Ox 98% ; cp4 05 06:00 BP 132 / 73; Pulse 82; Resp 18; Pulse Ox 98% ; cp4 07:18 BP 129 / 76; Pulse 82; Resp 18; Temp 98.6; Pulse Ox 99% on R/A; ph 05 16:00 Pain Scale: Adult kc ED Course: 07/14 15:38 Patient arrived in ED. sb4 15:38 Alaina Blue PA-C is PHCP. sb4 15:38 Eren Saunders DO is Attending Physician. sb4 16:00 Patient maintains SpO2 saturation greater than 95% on room air. kc6 16:00 Arm band placed on. kc6 16:00 Patient has correct armband on for positive identification. Bed in low position. Side kc6 rails up X2. Valuables inventory done. Locked in safe. See valuables checklist. Sitter at bedside. Door closed. Noise minimized. Visitors limited. Lights dimmed. Moved to private room. Warm blanket given. Pillow given. Verbal reassurance given. Patient is placed in psych hold. 16:11 Triage completed. jl7 16:20 Mis Aguilar, RN is Primary Nurse. kc6 16:20 Initial lab(s) drawn, by me, sent to lab. Inserted saline lock: 20 gauge in right bc6 antecubital area, using aseptic technique. Blood collected. Flushed with 10 mL NS. 16:20 Acetaminophen Sent. bc6 16:20 Basic Metabolic Panel Sent. 6 16:20 CBC with Diff Sent. bc6 16:20 ETOH Level Sent. bc6 16:20 Hepatic Function Sent. bc6 16:20 PT-INR Sent. bc6 16:20 Ptt, Activated Sent. bc6 16:21 Salicylate Sent. bc6 17:39 called the [facility] Crisis line and paged the screener international logistics analyst / Too will page the eb screener international logistics analyst. 17:57 Gay from [facility] called she will be here to screen the patient in 2 hrs/ she is eb [place] and will head over when she is done. 19:11 Report given to Echo Lemon RN. kc6 20:30 faxed pt clincals to [facility]. kmf 07/15 04:45 Diet: Patient given juice. oe 04:48 Assisted to bathroom. oe 05:00 refaxed pt clinical's to [facility] and [facility]. kmf 06:58 connected Mahogany Ruiz from [facility] with Yady Ruiz for nurse to nurse. eb 07:00 No provider procedures requiring assistance completed. cp4 07:00 administrative approval given by Mahogany Ley Rn/ patient has been accepted to [facility]/ Dr. Ellison has accepted the patient in transfer without conference with Dr. Jovel. 07:50 IV discontinued, intact, bleeding controlled, No redness/swelling at site. Pressure ph dressing applied. Administered Medications: 07/14 18:34 Drug: LORazepam PO 2 mg PO once Route: PO; 6 19:00 Follow up: Response: No adverse reaction; RASS: Alert and Calm (0) kc6 Medication: 07/15 07:00 VIS not applicable for this client. cp4 Outcome: 07/14 17:33 ER care complete, transfer ordered by MD. sb4 07/15 07:49 Transferred by [facility] [place]. ph Condition: good Instructed on the need for transfer, 07:50 Patient left the ED. ph Signatures: Vernell Dodson RN RN Lalito Ha Jahala RN RN jl7 Nivia Kelley Kaitlyn RN RN kc6 Alaina Blue PA-C PA-C nic4 Terrie Spencer Christina cp4 Trixie Farooq [facility] Corrections: (The following items were deleted from the chart) 07:01 07:00 Patient did not have IV access during this emergency room visit. cp4 cp4 07: 07:00 Discharged to home ambulatory, cp4 cp4 07: 07:00 Condition: stable cp4 cp4 07: 07:00 Discharge instructions given to med surg rn, Instructed on discharge instructions, cp4 follow up and referral plans. medication usage, Demonstrated understanding of instructions, follow-up care, medications, Prescriptions given X 1, cp4 07:02 07:00 Provided Education on: upper respiratory infection. cp4 cp4
[2024-07-14] MEDS ORDERED: LORAZEPAM 1 MG TABLET ONE (18:30)
[2024-07-15 08:17] VITALS: BP 129/76; TEMP 98.6; O2SAT 99
--- NOTE | 2024-07-17 12:05 | EKG ---
Test Date: 2024-07-14 Test Time: 16:16:20 Office Automation Clerk: ADRIAN MEASUREMENT RESULTS: Intervals: Rate: 75 MD: QRSD: 98 QT: 364 QTc: 406 [place]: P: 78 MD: QRS: 97 T: 83 INTERPRETIVE STATEMENTS: Atrial flutter with variable AV block Rightward axis Abnormal ECG Compared to ECG 06/13/2024 16:10:05 Sinus bradycardia no longer present Atrial premature complex(es) no longer present Early repolarization no longer present Electronically Signed On 07-17-24 12:03:54 CDT by Joao Ribeiro
== END 2024-07-15 07:50 ==
LOC: ER 15:38
DX: T50.992A Poisoning by other drugs, medicaments and biological substances, intentional self-harm, initial encounter (principal)
CPT/HCPCS: 36415; 80048; 80076; 80143; 80164; 80179; 80307; 82077; 85025; 85610; 85730; 93005; 99285